=== PATIENT | female | born 1955 | race Caucasian/White ===

== ENCOUNTER 2016-10-24 15:55 | Observation (INO) | payer BC ==
[2016-10-24] MEDS ORDERED: Zofran 4 MG/2 ML VIAL IV PRN (16:24)
[2016-10-24] MEDS ORDERED: TORAdol 30 mg Injection IV PRN (16:24)
[2016-10-24] MEDS ORDERED: Sodium Chloride 0.9% 1000 ML 1,000 ML IV SCH (16:30)
[2016-10-24] MEDS: Sodium Chloride 0.9% 1000 ML 1,000 ML IV SCH (17:19)
[2016-10-24 17:25] LABS: BASOPHIL % 0.1 % (0.0-0.4); Eosinophil % 0.7 % (0.00-5.0); Granulocytes % 66.7 % (36.0-66.0); Lymphocytes % 25.3 % (24.0-44.0); Mean Cell Volume 91.7 fl (78-100); Mean Platelet Volume 9.1 fl (6-9.5); Monocytes % 7.2 % (0.0-12.0); Platelet Count 153 K/mm3 (150-450); Red Blood Count 4.09 M/mm3 (4.1-5.4); Red Cell Distribution Width 13.2 % (11.5-14.0); White Blood Count 7.6 K/mm3 (4.0-10.5)
[2016-10-24 18:03] LABS: ALBUMIN 3.8 g/dL (3.4-5.0); ALKALINE PHOSPHATASE 92 U/L (46-116); ANION GAP 14.9 MEQ/L (5-15); BILIRUBIN,TOTAL 0.5 mg/dL (0.2-1.0); BLOOD UREA NITROGEN 11 mg/dL (9-20); CHLORIDE 103 mEq/L (98-107); Carbon Dioxide 25.9 mEq/L (21-32); Glucose 167 MG/DL (70-110); Potassium 4.3 mEq/L (3.5-5.1); SGOT/AST 57 U/L (15-37); SGPT/ALT 62 U/L (12-78); SODIUM 140 mEq/L (136-145); Total Protein 7.5 gm/dL (6.4-8.2)
[2016-10-24 19:11] LABS: COMPLETE URINE MICROSCOPIC? NO; Collection Type CCMS
[2016-10-24] MEDS ORDERED: ZOCOR 20MG PO SCH (22:00)
[2016-10-25] MEDS: Sodium Chloride 0.9% 1000 ML 1,000 ML IV SCH ×2 (02:48→10:28)
[2016-10-25] MEDS ORDERED: PROVENTIL 2.5 MG/3 ML NEB IH PRN (07:11)
--- NOTE | 2016-10-25 08:51 | PCM.NOTE ---
Date and Time: 10/25/16 0850 Subjective Assessment: She tolerated jello this morning. Still not feeling great. Objective Exam General Appearance: no apparent distress Neurologic Exam: alert, 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, cooperative Skin Exam: normal color, warm Respiratory Exam: normal breath sounds, lungs clear, No crackles/rales, No rhonchi, No wheezing Cardiovascular Exam: regular rate/rhythm, normal heart sounds Gastrointestinal/Abdomen Exam: soft, normal bowel sounds, No tenderness, No distention Extremity Exam: No pedal edema, No swelling OBJECTIVE DATA Vital Signs: Vital Signs - 24 hr Temp Pulse Resp BP Pulse Ox 10/25/16 07:58 97.8 F 84 20 131/60 95 10/25/16 04:00 97.6 F 78 17 126/54 97 10/25/16 00:00 98.0 F 87 18 118/48 97 10/24/16 20:00 97.6 F 99 H 19 134/58 95 10/24/16 16:23 97.9 F 99 H 18 142/75 96 Pain Assessment - Last Documented Pain Intensity 5 Pain Scale Used [facility] Intake and Output: Intake & Output 10/22/16 10/23/16 10/24/16 10/25/16 11:59 11:59 11:59 11:59 Intake Total 3260 Output Total 800 Balance 2460 Weight 83.915 kg Lab Results: Accuchecks Date 10/24/16 Time 22:00 Accucheck Value: 116 Lab Results-Last 24 Hours 10/24/16 10/24/16 10/24/16 Range/Units 17:15 17:15 18:51 WBC 7.6 (4.0-10.5) K/mm3 RBC 4.09 L (4.1-5.4) M/mm3 Hgb 12.7 (12.0-16.0) gm/dl Hct 37.5 (35-47) % MCV 91.7 (78-100) fl MCH 31.0 (26-32) pg MCHC 33.9 (32-36) g/dl RDW 13.2 (11.5-14.0) % Plt Count 153 (150-450) K/mm3 MPV 9.1 (6-9.5) fl Gran % 66.7 H (36.0-66.0) % Lymphocytes % 25.3 (24.0-44.0) % Monocytes % 7.2 (0.0-12.0) % Eosinophils % 0.7 (0.00-5.0) % Basophils % 0.1 (0.0-0.4) % Basophils # 0.01 (0-0.4) Sodium 140 (136-145) mEq/L Potassium 4.3 (3.5-5.1) mEq/L Chloride 103 (98-107) mEq/L Carbon Dioxide 25.9 (21-32) mEq/L Anion Gap 14.9 (5-15) MEQ/L BUN 11 (9-20) mg/dL Creatinine 0.77 (0.55-1.30) mg/dl Estimated GFR > 60 ML/MIN Glucose 167 H (70-110) MG/DL Calcium 10.1 (8.5-10.1) mg/dL Total Bilirubin 0.5 (0.2-1.0) mg/dL AST 57 H (15-37) U/L ALT 62 (12-78) U/L Alkaline Phosphatase 92 (46-116) U/L Serum Total Protein 7.5 (6.4-8.2) gm/dL Albumin 3.8 (3.4-5.0) g/dL Ur Collection Type CCMS Urine Color YELLOW (YELLOW) Urine Appearance CLEAR (CLEAR) Urine pH 7.0 (5-6) Ur Specific [place] 1.015 (1.005-1.025) Urine Protein NEGATIVE (Negative) Urine Glucose (UA) NEGATIVE (NEGATIVE) mg/dL Urine Ketones TRACE (NEGATIVE) Urine Nitrite NEGATIVE (NEGATIVE) Urine Bilirubin NEGATIVE (NEGATIVE) Urine Urobilinogen 0.2 (0-1) mg/dL Urine WBC (Auto) NEGATIVE (NEGATIVE) Urine RBC (Auto) NEGATIVE (0-5) Rao/ul Specimen Received 10-24-16 1900 Radiology Exams: Radiology Procedures Category Date Time Status CHEST 2 VIEWS (PA AND LAT) Routine Exams 10/24/16 17:00 Taken Assessment/Plan (1) Dehydration Current Visit: Yes Status: Acute Assessment & Plan: improved. Continue IV fluids while she increases po intake. If tolerating po this afternoon can d/c home. Code(s): E86.0 - DEHYDRATION (2) Vomiting Current Visit: Yes Status: Acute Assessment & Plan: improved. Code(s): R11.10 - VOMITING, UNSPECIFIED (3) Diarrhea Current Visit: Yes Status: Acute Assessment & Plan: None here. Code(s): R19.7 - DIARRHEA, UNSPECIFIED
--- NOTE | 2016-10-25 08:51 | XRAY ---
Indication: Nausea, vomiting, diarrhea, pain, and dehydration. Comparison: December 11, 2015 PA/lateral chest today demonstrates normal heart and lungs. Bony thorax intact again with spinal degenerative changes.
[2016-10-25] MEDS ORDERED: Benicar 20 MG PO SCH (10:00)
[2016-10-25] MEDS ORDERED: SYNTHROID 75 MCG PO SCH (10:00)
[2016-10-25] MEDS ORDERED: Klor Con 10 MEQ PO SCH (10:00)
[2016-10-25] MEDS ORDERED: NON-FORMULARY ITEM (Venlafaxine Hcl [Effexor] 150 MG) PO SCH (10:00)
[2016-10-25] MEDS ORDERED: NORVASC 5 MG PO SCH (10:00)
[2016-10-25] MEDS ORDERED: POTASSIUM GLUCONATE 595 MG PO SCH (10:00)
[2016-10-25] MEDS ORDERED: OLMESARTAN MED PO SCH (10:00)
[2016-10-25] MEDS ORDERED: AMLODIPINE BES PO SCH (10:00)
[2016-10-25] MEDS ORDERED: Effexor XR 75 MG PO SCH (10:00)
[2016-10-25 17:09] VITALS: BP 118/59; PULSE 91; O2SAT 96
--- NOTE | 2016-10-25 17:43 | PCM.DS ---
Discharge Summary Date of Admission: 10/24/16 15:55 Admitting Physician: ANGELA LEE Primary Care Provider: ANGELA LEE Allergies Allergies No Known Drug Allergies Allergy (Verified 12/04/15 15:04) Hospital Summary - Hospital Course Hospital Course: Pt was admitted through the office for dehydration - not tolerating po. Vomiting and Diarrhea. Today no diarrhea, she tolerated lunch well and is feeling better, ready to go home. - Vitals & Intake/Output Vital Signs: Vital Signs Temperature 98.6 F 10/25/16 16:00 Pulse Rate 91 H 10/25/16 16:00 Respiratory Rate 20 10/25/16 16:00 Blood Pressure 118/59 10/25/16 16:00 O2 Sat by Pulse Oximetry 96 10/25/16 16:00 Intake & Output: Intake & Output 10/23/16 10/24/16 10/25/16 10/26/16 11:59 11:59 11:59 11:59 Intake Total 3260 1440 Output Total 800 2000 Balance 2460 -560 Weight 83.915 kg - Lab Result Diagrams: 10/24/16 17:15 10/24/16 17:15 Lab Results-Last 24 Hrs: Accuchecks Date 10/24/16 Time 22:00 Accucheck Value: 198 Accucheck Value: 150 Accucheck Value: 131 Accucheck Value: 116 Lab Results-Last 24 Hours 10/24/16 10/24/16 10/24/16 Range/Units 17:15 17:15 18:51 WBC 7.6 (4.0-10.5) K/mm3 RBC 4.09 L (4.1-5.4) M/mm3 Hgb 12.7 (12.0-16.0) gm/dl Hct 37.5 (35-47) % MCV 91.7 (78-100) fl MCH 31.0 (26-32) pg MCHC 33.9 (32-36) g/dl RDW 13.2 (11.5-14.0) % Plt Count 153 (150-450) K/mm3 MPV 9.1 (6-9.5) fl Gran % 66.7 H (36.0-66.0) % Lymphocytes % 25.3 (24.0-44.0) % Monocytes % 7.2 (0.0-12.0) % Eosinophils % 0.7 (0.00-5.0) % Basophils % 0.1 (0.0-0.4) % Basophils # 0.01 (0-0.4) Sodium 140 (136-145) mEq/L Potassium 4.3 (3.5-5.1) mEq/L Chloride 103 (98-107) mEq/L Carbon Dioxide 25.9 (21-32) mEq/L Anion Gap 14.9 (5-15) MEQ/L BUN 11 (9-20) mg/dL Creatinine 0.77 (0.55-1.30) mg/dl Estimated GFR > 60 ML/MIN Glucose 167 H (70-110) MG/DL Calcium 10.1 (8.5-10.1) mg/dL Total Bilirubin 0.5 (0.2-1.0) mg/dL AST 57 H (15-37) U/L ALT 62 (12-78) U/L Alkaline Phosphatase 92 (46-116) U/L Serum Total Protein 7.5 (6.4-8.2) gm/dL Albumin 3.8 (3.4-5.0) g/dL Ur Collection Type CCMS Urine Color YELLOW (YELLOW) Urine Appearance CLEAR (CLEAR) Urine pH 7.0 (5-6) Ur Specific [place] 1.015 (1.005-1.025) Urine Protein NEGATIVE (Negative) Urine Glucose (UA) NEGATIVE (NEGATIVE) mg/dL Urine Ketones TRACE (NEGATIVE) Urine Nitrite NEGATIVE (NEGATIVE) Urine Bilirubin NEGATIVE (NEGATIVE) Urine Urobilinogen 0.2 (0-1) mg/dL Urine WBC (Auto) NEGATIVE (NEGATIVE) Urine RBC (Auto) NEGATIVE (0-5) Rao/ul Specimen Received 10-24-16 1900 Micro Results-Entire Visit: Accuchecks Date 10/24/16 Time 22:00 Accucheck Value: 198 Accucheck Value: 150 Accucheck Value: 131 Accucheck Value: 116 - Radiology Exams Ordered Rad Exams-Entire Visit: Radiology Procedures Category Date Time Status CHEST 2 VIEWS (PA AND LAT) Routine Exams 10/24/16 17:00 Completed - Procedures and Test Procedures and Tests throughout Hospitalization: Therapy Orders & Screens 10/25/16 09:57 Respiratory Nebulizer Comment: Q4PRN SOB WHEEZING Diagnosis: Dehydration,Nausea,Vomiting,Diarrhea,Neck Pain Discharge Exam General Appearance: no apparent distress, other (see this morning's exam) Neurologic Exam: alert, 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, cooperative Skin Exam: normal color, warm, dry Respiratory Exam: normal breath sounds, lungs clear Cardiovascular Exam: regular rate/rhythm, normal heart sounds Gastrointestinal/Abdomen Exam: soft, normal bowel sounds, No tenderness Final Diagnosis/Problem List - Final Discharge Diagnosis/Problem (1) Dehydration Current Visit: Yes Status: Resolved (2) Vomiting Current Visit: Yes Status: Resolved (3) Diarrhea Current Visit: Yes Status: Resolved - Discharge Disposition: Home, Self-Care Condition: Stable Medications: Home Medications Levothyroxine Sodium 75 Mcg [Synthroid 75 Mcg] 75 mcg PO DAILY 11/07/13 [ Confirmed 10/24/16] Venlafaxine HCl [Effexor] 150 mg PO DAILY 11/07/13 [Confirmed 10/24/16] Cinnamon Bark [Cinnamon] 1,000 mg PO DAILY 11/08/13 [Confirmed 10/24/16] Multivitamin [Multi-Vitamin Daily] 1 each PO DAILY 11/08/13 [Confirmed 10/24/16] Pravastatin Sodium 20 mg PO HS 11/08/13 [Confirmed 10/24/16] Calcium Citrate/Vitamin D3 [Calcium Citrate - Vit D Caplet] 1 each PO DAILY [Confirmed 10/24/16] Cyanocobalamin (Vitamin B-12) [Vitamin B12] 500 mcg PO DAILY 10/01/15 [ Confirmed 10/24/16] Potassium Gluconate 595 mg PO DAILY 10/01/15 [Confirmed 10/24/16] Raloxifene HCl 60 mg [Evista 60 MG] 60 mg PO DAILY 10/01/15 [Confirmed 07/02] Metformin HCl 500 mg [Glucophage 500 MG] 500 tablet PO DAILY 12/04/15 [ Confirmed 10/24/16] Albuterol 2.5 mg/3 ml Neb [Proventil 2.5 mg/3 ml Neb] 2.5 mg IH Q4HPRN PRN #0 neb 12/05/15 [Confirmed 10/24/16] Amlodipine Bes/Olmesartan Med [Artemio 5-40 mg Tablet] 1 each PO DAILY 10/24/16 [ Confirmed 10/24/16] Active Inpatient Medications Albuterol Sulfate (Proventil 2.5 Mg/3 Ml Neb) 2.5 mg IH Q4HPRN PRN PRN Reason: SHORTNESS OF BREATH Stop: 11/24/16 07:10 Amlodipine Besylate (Norvasc 5 Mg) 5 mg PO DAILY JAYDA Stop: 11/24/16 09:59 Last Admin: 10/25/16 10:21 Dose: 5 mg Sodium Chloride (Sodium Chloride 0.9% 1000 Ml) 1,000 mls @ 125 mls/hr IV .Q8H JAYDA Stop: 11/23/16 16:59 Last Admin: 10/25/16 10:28 Dose: 125 mls/hr Ketorolac Tromethamine (Toradol 30 Mg Injection) 30 mg IV Q6H PRN PRN Stop: 10/29/16 16:23 Last Admin: 10/24/16 20:32 Dose: 30 mg Levothyroxine Sodium (Synthroid 75 Mcg) 75 mcg PO DAILY JAYDA Stop: 11/24/16 09:59 Last Admin: 10/25/16 10:20 Dose: 75 mcg Olmesartan (Benicar 20 Mg) 40 mg PO DAILY JAYDA Stop: 11/24/16 09:59 Last Admin: 10/25/16 10:20 Dose: 40 mg Ondansetron HCl (Zofran 4 Mg/2 Ml Vial) 4 mg IV Q4H PRN PRN Stop: 11/23/16 16:23 Potassium Chloride (Klor Con 10 Meq) 10 meq PO DAILY JAYDA Stop: 11/24/16 09:59 Last Admin: 10/25/16 10:21 Dose: 10 meq Simvastatin (Zocor 20mg) 20 mg PO HS JAYDA Stop: 11/23/16 21:59 Last Admin: 10/24/16 22:52 Dose: 20 mg Venlafaxine HCl (Effexor Xr 75 Mg) 150 mg PO DAILY JAYDA Stop: 11/24/16 09:59 Last Admin: 10/25/16 10:20 Dose: 150 mg Follow up with: ANGELA LEE [Primary Care Provider] - Call for Appointment
== END 2016-10-25 18:40 | disposition home or self-care (01) ==
LOC: MED SURG 15:55
PROVIDERS: ADMIT Family Medicine; ATTEND Family Medicine
DX: E86.0 Dehydration (principal); M54.2 Cervicalgia; E03.9 Hypothyroidism, unspecified; I10 Essential (primary) hypertension
CPT/HCPCS: 36415; 71020; 80053; 81002; 82962; 85025; 94760; G0378; J1885

== ENCOUNTER 2016-12-14 12:13 | Observation (INO) | payer BC ==
[2016-12-14] MEDS ORDERED: NovoLIN R SQ PRN (12:20)
[2016-12-14] MEDS ORDERED: TYLENOL 325 MG PO PRN (12:20)
[2016-12-14] MEDS ORDERED: Sodium Chloride 0.9% 1000 ML 1,000 ML IV STA (12:20)
[2016-12-14] MEDS ORDERED: Zofran 4 MG/2 ML VIAL IV PRN (12:20)
[2016-12-14 12:42] LABS: BASOPHIL % 0.1 % (0.0-0.4); Eosinophil % 0.7 % (0.00-5.0); Granulocytes % 75.5 % (36.0-66.0); Lymphocytes % 13.9 % (24.0-44.0); Mean Cell Volume 89.4 fl (78-100); Mean Corpuscular Hemoglobin 31.2 pg (26-32); Mean Platelet Volume 9.1 fl (6-9.5); Monocytes % 9.8 % (0.0-12.0); Platelet Count 126 K/mm3 (150-450); Red Blood Count 4.61 M/mm3 (4.1-5.4); Red Cell Distribution Width 13.8 % (11.5-14.0); White Blood Count 6.9 K/mm3 (4.0-10.5)
[2016-12-14 13:09] LABS: ALBUMIN 3.9 g/dL (3.4-5.0); BILIRUBIN,TOTAL 0.6 mg/dL (0.2-1.0); Carbon Dioxide 22.5 mEq/L (21-32); Potassium 4.5 mEq/L (3.5-5.1); Total Protein 7.8 gm/dL (6.4-8.2)
[2016-12-14] MEDS: Sodium Chloride 0.9% 1000 ML 1,000 ML IV SCH (13:30)
[2016-12-14] MEDS ORDERED: PROVENTIL 2.5 MG/3 ML NEB IH PRN (14:56)
[2016-12-14 16:59] LABS: Bacteria FEW /HPF (NEGATIVE); COMPLETE URINE MICROSCOPIC? YES; Collection Type VOID; Epithelial Cells FEW /HPF (FEW)
[2016-12-14 17:00] LABS: Hyaline Casts >50 /LPF (0-2)
--- NOTE | 2016-12-14 17:52 | PCM.HP ---
History of Present Illness - Chief Complaint Chief Complaint: n/v diarrhea Date: 12/14/16 History of Present Illness: is a 61 year old female. developed nausea vomiting and diarrhea as well as chills 4 days ago. Was trying to work today but was sweating and very light headed with dry heaves> She went to [facility] and was found to have orthostatic hypotension and was sent for direct admission and hydration. The nausea and diarrhea are improving now and she is still weak no abdominal pain, chest pain, shortness of breath, or focal weakness. - Review of Systems Constitutional: Chills, Fatigue, Lethargy, No Fever Eyes: No Discharge, No Double Vision Ears, Nose, & Throat: No Ear Pain, No Ear Discharge, No Hearing Changes, No Mouth Swelling, No Painful Swallowing Respiratory: No Cough, No Short Of Breath, No Wheezing Cardiac: No Chest Pain, No Edema, No Palpitations, No Syncope Abdominal/Gastrointestinal: Nausea, Vomiting, Diarrhea, No Abdominal Pain, No Hematochezia, No Melena Genitourinary Symptoms: No Dysuria, No Frequency, No Hematuria Musculoskeletal: No Arthralgias, No Back Pain, No Neck Pain Skin: No Cellulitis, No Decubiti, No Induration, No Pruritis Neurological: No Dizziness, No Focal Weakness Psychological: No Alcohol Abuse, No Drug Abuse Medications & Allergies Home Medications: Home Medication List Levothyroxine Sodium 75 Mcg [Synthroid 75 Mcg] 75 mcg PO DAILY 11/07/13 [ History Confirmed 12/14/16] Venlafaxine HCl [Effexor] 150 mg PO DAILY 11/07/13 [History Confirmed 12/14/16] Cinnamon Bark [Cinnamon] 1,000 mg PO DAILY 11/08/13 [History Confirmed 12/14/16] Multivitamin [Multi-Vitamin Daily] 1 each PO DAILY 11/08/13 [History Confirmed 12/14/16] Pravastatin Sodium 20 mg PO HS 11/08/13 [History Confirmed 12/14/16] Calcium Citrate/Vitamin D3 [Calcium Citrate - Vit D Caplet] 1 each PO DAILY [History Confirmed 12/14/16] Cyanocobalamin (Vitamin B-12) [Vitamin B12] 500 mcg PO DAILY 10/01/15 [History Confirmed 12/14/16] Potassium Gluconate 595 mg PO DAILY 10/01/15 [History Confirmed 12/14/16] Raloxifene HCl 60 mg [Evista 60 MG] 60 mg PO DAILY 10/01/15 [History Confirmed 12/14/16] Metformin HCl 500 mg [Glucophage 500 MG] 500 tablet PO DAILY 12/04/15 [ History Confirmed 12/14/16] Albuterol 2.5 mg/3 ml Neb [Proventil 2.5 mg/3 ml Neb] 2.5 mg IH Q4HPRN PRN #0 neb 12/05/15 [Rx Confirmed 12/14/16] Amlodipine Bes/Olmesartan Med [Artemio 5-40 mg Tablet] 1 each PO DAILY 10/24/16 [ History Confirmed 12/14/16] Allergies/Adverse Reactions: Allergies Allergy/AdvReac Type Severity Reaction Status Date / Time No Known Drug Allergies Allergy Verified 12/04/15 15:04 - Past Medical History Past Medical History: Yes Neurological History: No Pertinent History ENT History: No Pertinent History Cardiac History: High Cholesterol, Hypertension Respiratory History: Bronchitis Endocrine Medical History: Diabetes Type II, Hypothyroidism Musculoskelatal History: Arthritis GI Medical History: No Pertinent History History: No Pertinent History Pyscho-Social History: Anxiety Reproductive Disorders: No Pertinent History Comment: borderline DM - Female History Are you now?: No - Past Surgical History Past Surgical History: No Neuro Surgical History: No Pertinent History Cardiac History: No Pertinent History Respiratory Surgery: No Pertinent History GI Surgical History: No Pertinent History Genitourinary Surgical Hx: No Pertinent History Musculskeletal Surgical Hx: No Pertinent History Female Surgical History: No Pertinent History Other Surgical History: NO SURGERYS - Social History Smoking Status: Never smoker Exposure to second hand smoke: No Alcohol: None Drug Use: none Significant Family History: no pertinent family hx - Physical Exam Vital Signs: Vital Signs - 24 hr Temp Pulse Resp BP Pulse Ox 12/14/16 16:03 96 12/14/16 16:00 98.6 F 88 18 117/57 12/14/16 13:03 98.4 F 92 H 18 111/60 97 General Appearance: no apparent distress, obese Neurologic Exam: alert, 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, cooperative Eye Exam: No scleral icterus, No pale conjunctivae Ears, Nose, Throat Exam: moist mucous membranes Neck Exam: non-tender, supple Respiratory Exam: normal breath sounds, lungs clear Cardiovascular Exam: regular rate/rhythm, normal heart sounds, normal peripheral pulses, No murmur Gastrointestinal/Abdomen Exam: soft, normal bowel sounds, No tenderness, No distention, No mass, No guarding, No ecchymosis Extremity Exam: normal inspection, No calf tenderness, No pedal edema Skin Exam: warm, dry, No rash Results - Labs Lab/Micro Results: Accuchecks Date 12/14/16 Accucheck Value: 114 Lab Results-Last 24 Hours 12/14/16 12/14/16 12/14/16 Range/Units 12:35 12:35 12:35 WBC 6.9 (4.0-10.5) K/mm3 RBC 4.61 (4.1-5.4) M/mm3 Hgb 14.4 (12.0-16.0) gm/dl Hct 41.2 (35-47) % MCV 89.4 (78-100) fl MCH 31.2 (26-32) pg MCHC 35.0 (32-36) g/dl RDW 13.8 (11.5-14.0) % Plt Count 126 L (150-450) K/mm3 MPV 9.1 (6-9.5) fl Gran % 75.5 H (36.0-66.0) % Lymphocytes % 13.9 L (24.0-44.0) % Monocytes % 9.8 (0.0-12.0) % Eosinophils % 0.7 (0.00-5.0) % Basophils % 0.1 (0.0-0.4) % Basophils # 0.01 (0-0.4) Sodium 136 (136-145) mEq/L Potassium 4.5 (3.5-5.1) mEq/L Chloride 100 (98-107) mEq/L Carbon Dioxide 22.5 (21-32) mEq/L Anion Gap 18.0 H (5-15) MEQ/L BUN 28 H (9-20) mg/dL Creatinine 1.38 H (0.55-1.30) mg/dl Estimated GFR 41 ML/MIN Glucose 197 H (70-110) MG/DL Calcium 10.3 H (8.5-10.1) mg/dL Total Bilirubin 0.6 (0.2-1.0) mg/dL AST 99 H (15-37) U/L ALT 65 (12-78) U/L Alkaline Phosphatase 86 (46-116) U/L Serum Total Protein 7.8 (6.4-8.2) gm/dL Albumin 3.9 (3.4-5.0) g/dL Lipase 229 (73-393) U/L Ur Collection Type Urine Color (YELLOW) Urine Appearance (CLEAR) Urine pH (5-6) Ur Specific [place] (1.005-1.025) Urine Protein (Negative) Urine Glucose (UA) (NEGATIVE) mg/dL Urine Ketones (NEGATIVE) Urine Nitrite (NEGATIVE) Urine Bilirubin (NEGATIVE) Urine Urobilinogen (0-1) mg/dL Urine WBC (Auto) (NEGATIVE) Urine RBC (Auto) (0-5) Rao/ul Urine Microscopic WBC (0-5) /HPF Ur Epithelial Cells (FEW) /HPF Urine Bacteria (NEGATIVE) /HPF Hyaline Casts (0-2) /LPF Influenza Type A Ag (NEGATIVE) Influenza Type B Ag (NEGATIVE) RSV (PCR) (Negative) Specimen Received 12/14/16 12/14/16 Range/Units 12:35 16:40 WBC (4.0-10.5) K/mm3 RBC (4.1-5.4) M/mm3 Hgb (12.0-16.0) gm/dl Hct (35-47) % MCV (78-100) fl MCH (26-32) pg MCHC (32-36) g/dl RDW (11.5-14.0) % Plt Count (150-450) K/mm3 MPV (6-9.5) fl Gran % (36.0-66.0) % Lymphocytes % (24.0-44.0) % Monocytes % (0.0-12.0) % Eosinophils % (0.00-5.0) % Basophils % (0.0-0.4) % Basophils # (0-0.4) Sodium (136-145) mEq/L Potassium (3.5-5.1) mEq/L Chloride (98-107) mEq/L Carbon Dioxide (21-32) mEq/L Anion Gap (5-15) MEQ/L BUN (9-20) mg/dL Creatinine (0.55-1.30) mg/dl Estimated GFR ML/MIN Glucose (70-110) MG/DL Calcium (8.5-10.1) mg/dL Total Bilirubin (0.2-1.0) mg/dL AST (15-37) U/L ALT (12-78) U/L Alkaline Phosphatase (46-116) U/L Serum Total Protein (6.4-8.2) gm/dL Albumin (3.4-5.0) g/dL Lipase (73-393) U/L Ur Collection Type VOID Urine Color YELLOW (YELLOW) Urine Appearance SLIGHTLY CLOUDY (CLEAR) Urine pH 5.0 (5-6) Ur Specific [place] 1.020 (1.005-1.025) Urine Protein 30 (Negative) Urine Glucose (UA) NEGATIVE (NEGATIVE) mg/dL Urine Ketones SMALL-15 (NEGATIVE) Urine Nitrite NEGATIVE (NEGATIVE) Urine Bilirubin NEGATIVE (NEGATIVE) Urine Urobilinogen 0.2 (0-1) mg/dL Urine WBC (Auto) SMALL (NEGATIVE) Urine RBC (Auto) NEGATIVE (0-5) Rao/ul Urine Microscopic WBC 5-10 (0-5) /HPF Ur Epithelial Cells FEW (FEW) /HPF Urine Bacteria FEW (NEGATIVE) /HPF Hyaline Casts >50 (0-2) /LPF Influenza Type A Ag NEGATIVE (NEGATIVE) Influenza Type B Ag NEGATIVE (NEGATIVE) RSV (PCR) NEGATIVE (Negative) Specimen Received 12/14/16 1640 Accuchecks Date 12/14/16 Accucheck Value: 114 - Other Procedures and Tests Respiratory Therapy 12/14/16 16:03 Respiratory Nebulizer UD Assessment/Plan (1) Gastroenteritis Current Visit: Yes Status: Acute Assessment & Plan: 1 L NS given and running at 100 mL/h nausea controlled now with zofran continue hydration advance diet as tolerated continue observation ambulate up with assistance as tolerated hold the antihypertensives sliding scale for the sugar control Code(s): K52.9 - NONINFECTIVE GASTROENTERITIS AND COLITIS, UNSPECIFIED (2) Acute kidney injury Current Visit: Yes Status: Acute Assessment & Plan: baseline creat 0.7 Code(s): N17.9 - ACUTE KIDNEY FAILURE, UNSPECIFIED (3) Dehydration Current Visit: Yes Status: Resolved Code(s): E86.0 - DEHYDRATION (4) Orthostatic hypotension Current Visit: Yes Status: Acute Code(s): I95.1 - ORTHOSTATIC HYPOTENSION (5) Type 2 diabetes mellitus Current Visit: Yes Status: Chronic
[2016-12-14] MEDS ORDERED: ZOCOR 20MG PO SCH (22:00)
[2016-12-14] MEDS ORDERED: NON-FORMULARY ITEM (Pravastatin Sodium [Pravastatin Sodium] 20 MG) PO SCH (22:00)
[2016-12-15] MEDS: Sodium Chloride 0.9% 1000 ML 1,000 ML IV SCH (00:42)
[2016-12-15 05:49] LABS: ANION GAP 14.9 MEQ/L (5-15); BLOOD UREA NITROGEN 15 mg/dL (9-20); CHLORIDE 106 mEq/L (98-107); Carbon Dioxide 22.2 mEq/L (21-32); Glucose 133 MG/DL (70-110); Potassium 4.2 mEq/L (3.5-5.1); SODIUM 139 mEq/L (136-145)
[2016-12-15 07:26] VITALS: O2SAT 97
--- NOTE | 2016-12-15 08:33 | PCM.DS ---
Discharge Summary Date of Admission: 12/14/16 12:13 Admitting Physician: ANGELA LEE Primary Care Provider: ANGELA LEE Allergies Allergies No Known Drug Allergies Allergy (Verified 12/04/15 15:04) Hospital Summary - Hospital Course Hospital Course: Pt admitted through [facility] care directly with hypotension and gastroenteritis. IV fluids and anti emetics. She is feeling better, no nausea currently and no diarrhea since admission. She tolerated CLD and ready to eat some more. - Vitals & Intake/Output Vital Signs: Vital Signs Temperature 98.0 F 12/15/16 07:25 Pulse Rate 84 12/15/16 07:25 Respiratory Rate 16 12/15/16 07:25 Blood Pressure 108/57 12/15/16 07:25 O2 Sat by Pulse Oximetry 97 12/15/16 07:25 Intake & Output: Intake & Output 12/12/16 12/13/16 12/14/16 12/15/16 11:59 11:59 11:59 11:59 Intake Total 3230 Output Total 200 Balance 3030 Weight 80.456 kg - Lab Result Diagrams: 12/14/16 12:35 12/15/16 05:24 Lab Results-Last 24 Hrs: Accuchecks Date 12/14/16 Accucheck Value: 131 Accucheck Value: 114 Lab Results-Last 24 Hours 12/14/16 12/14/16 12/14/16 Range/Units 12:35 12:35 12:35 WBC 6.9 (4.0-10.5) K/mm3 RBC 4.61 (4.1-5.4) M/mm3 Hgb 14.4 (12.0-16.0) gm/dl Hct 41.2 (35-47) % MCV 89.4 (78-100) fl MCH 31.2 (26-32) pg MCHC 35.0 (32-36) g/dl RDW 13.8 (11.5-14.0) % Plt Count 126 L (150-450) K/mm3 MPV 9.1 (6-9.5) fl Gran % 75.5 H (36.0-66.0) % Lymphocytes % 13.9 L (24.0-44.0) % Monocytes % 9.8 (0.0-12.0) % Eosinophils % 0.7 (0.00-5.0) % Basophils % 0.1 (0.0-0.4) % Basophils # 0.01 (0-0.4) Sodium 136 (136-145) mEq/L Potassium 4.5 (3.5-5.1) mEq/L Chloride 100 (98-107) mEq/L Carbon Dioxide 22.5 (21-32) mEq/L Anion Gap 18.0 H (5-15) MEQ/L BUN 28 H (9-20) mg/dL Creatinine 1.38 H (0.55-1.30) mg/dl Estimated GFR 41 ML/MIN Glucose 197 H (70-110) MG/DL Calcium 10.3 H (8.5-10.1) mg/dL Total Bilirubin 0.6 (0.2-1.0) mg/dL AST 99 H (15-37) U/L ALT 65 (12-78) U/L Alkaline Phosphatase 86 (46-116) U/L Serum Total Protein 7.8 (6.4-8.2) gm/dL Albumin 3.9 (3.4-5.0) g/dL Lipase 229 (73-393) U/L Ur Collection Type Urine Color (YELLOW) Urine Appearance (CLEAR) Urine pH (5-6) Ur Specific [place] (1.005-1.025) Urine Protein (Negative) Urine Glucose (UA) (NEGATIVE) mg/dL Urine Ketones (NEGATIVE) Urine Nitrite (NEGATIVE) Urine Bilirubin (NEGATIVE) Urine Urobilinogen (0-1) mg/dL Urine WBC (Auto) (NEGATIVE) Urine RBC (Auto) (0-5) Rao/ul Urine Microscopic WBC (0-5) /HPF Ur Epithelial Cells (FEW) /HPF Urine Bacteria (NEGATIVE) /HPF Hyaline Casts (0-2) /LPF Influenza Type A Ag (NEGATIVE) Influenza Type B Ag (NEGATIVE) RSV (PCR) (Negative) Specimen Received 12/14/16 12/14/16 12/15/16 Range/Units 12:35 16:40 05:24 WBC (4.0-10.5) K/mm3 RBC (4.1-5.4) M/mm3 Hgb (12.0-16.0) gm/dl Hct (35-47) % MCV (78-100) fl MCH (26-32) pg MCHC (32-36) g/dl RDW (11.5-14.0) % Plt Count (150-450) K/mm3 MPV (6-9.5) fl Gran % (36.0-66.0) % Lymphocytes % (24.0-44.0) % Monocytes % (0.0-12.0) % Eosinophils % (0.00-5.0) % Basophils % (0.0-0.4) % Basophils # (0-0.4) Sodium 139 (136-145) mEq/L Potassium 4.2 (3.5-5.1) mEq/L Chloride 106 (98-107) mEq/L Carbon Dioxide 22.2 (21-32) mEq/L Anion Gap 14.9 (5-15) MEQ/L BUN 15 (9-20) mg/dL Creatinine 0.74 (0.55-1.30) mg/dl Estimated GFR > 60 ML/MIN Glucose 133 H (70-110) MG/DL Calcium 8.4 L (8.5-10.1) mg/dL Total Bilirubin (0.2-1.0) mg/dL AST (15-37) U/L ALT (12-78) U/L Alkaline Phosphatase (46-116) U/L Serum Total Protein (6.4-8.2) gm/dL Albumin (3.4-5.0) g/dL Lipase (73-393) U/L Ur Collection Type VOID Urine Color YELLOW (YELLOW) Urine Appearance SLIGHTLY CLOUDY (CLEAR) Urine pH 5.0 (5-6) Ur Specific [place] 1.020 (1.005-1.025) Urine Protein 30 (Negative) Urine Glucose (UA) NEGATIVE (NEGATIVE) mg/dL Urine Ketones SMALL-15 (NEGATIVE) Urine Nitrite NEGATIVE (NEGATIVE) Urine Bilirubin NEGATIVE (NEGATIVE) Urine Urobilinogen 0.2 (0-1) mg/dL Urine WBC (Auto) SMALL (NEGATIVE) Urine RBC (Auto) NEGATIVE (0-5) Rao/ul Urine Microscopic WBC 5-10 (0-5) /HPF Ur Epithelial Cells FEW (FEW) /HPF Urine Bacteria FEW (NEGATIVE) /HPF Hyaline Casts >50 (0-2) /LPF Influenza Type A Ag NEGATIVE (NEGATIVE) Influenza Type B Ag NEGATIVE (NEGATIVE) RSV (PCR) NEGATIVE (Negative) Specimen Received 12/14/16 1640 Micro Results-Entire Visit: Accuchecks Date 12/14/16 Accucheck Value: 131 Accucheck Value: 114 - Procedures and Test Procedures and Tests throughout Hospitalization: Therapy Orders & Screens 12/14/16 16:03 Respiratory Nebulizer UD Comment: albuterol q4prn Diagnosis: n/v diarrhea Discharge Exam General Appearance: no apparent distress Neurologic Exam: alert, 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, cooperative Skin Exam: normal color, warm, dry Respiratory Exam: normal breath sounds, No crackles/rales, No rhonchi, No wheezing Cardiovascular Exam: regular rate/rhythm, normal heart sounds, No murmur Gastrointestinal/Abdomen Exam: soft, normal bowel sounds, No tenderness, No distention, No mass Extremity Exam: No pedal edema, No swelling Final Diagnosis/Problem List - Final Discharge Diagnosis/Problem (1) Gastroenteritis Current Visit: Yes Status: Acute Assessment & Plan: Much improved. If she can tolerate bland diet at lunch may be able to d/c home later today. (2) Orthostatic hypotension Current Visit: Yes Status: Acute Assessment & Plan: due to dehydration. (3) Acute renal failure Current Visit: Yes Status: Acute Assessment & Plan: pre-renal, resolved now with IV fluids. - Discharge Disposition: Home, Self-Care Condition: Stable Prescriptions: No Action Levothyroxine Sodium 75 Mcg [Synthroid 75 Mcg] 75 mcg PO DAILY Venlafaxine HCl [Effexor] 150 mg PO DAILY Pravastatin Sodium 20 mg PO HS Cinnamon Bark [Cinnamon] 1,000 mg PO DAILY Multivitamin [Multi-Vitamin Daily] 1 each PO DAILY Cyanocobalamin (Vitamin B-12) [Vitamin B12] 500 mcg PO DAILY Raloxifene HCl 60 mg [Evista 60 MG] 60 mg PO DAILY Calcium Citrate/Vitamin D3 [Calcium Citrate - Vit D Caplet] 1 each PO DAILY Potassium Gluconate 595 mg PO DAILY Metformin HCl 500 mg [Glucophage 500 MG] 500 tablet PO DAILY Albuterol 2.5 mg/3 ml Neb [Proventil 2.5 mg/3 ml Neb] 2.5 mg IH Q4HPRN PRN #0 neb PRN Reason: Shortness Of Breath Amlodipine Bes/Olmesartan Med [Artemio 5-40 mg Tablet] 1 each PO DAILY Follow up with: ANGELA LEE [Primary Care Provider] - 1 Week Forms: Patient Portal Information
[2016-12-15] MEDS ORDERED: CYANOCOBALAMIN 500 MCG PO SCH (10:00)
[2016-12-15] MEDS ORDERED: NON-FORMULARY ITEM (Venlafaxine Hcl [Effexor] 150 MG) PO SCH (10:00)
[2016-12-15] MEDS ORDERED: SYNTHROID 75 MCG PO SCH (10:00)
[2016-12-15] MEDS ORDERED: Vitamin B-12 500 MCG PO SCH (10:00)
[2016-12-15] MEDS ORDERED: POTASSIUM GLUCONATE 595 MG PO SCH (10:00)
[2016-12-15] MEDS ORDERED: ENOXAPARIN SODIUM SQ SCH (10:00)
[2016-12-15] MEDS ORDERED: EFFEXOR 37.5 MG PO SCH (10:00)
[2016-12-15] MEDS ORDERED: Klor Con 10 MEQ PO SCH ×2 (10:00→22:00)
[2016-12-15 11:16] VITALS: BP 121/68; PULSE 87
== END 2016-12-15 14:00 | disposition home or self-care (01) ==
LOC: MED SURG 12:13
PROVIDERS: ADMIT Family Medicine; ATTEND Family Medicine
DX: K52.9 Noninfective gastroenteritis and colitis, unspecified (principal); I95.1 Orthostatic hypotension; E86.0 Dehydration; N17.9 Acute kidney failure, unspecified; E11.9 Type 2 diabetes mellitus without complications; Z79.4 Long term (current) use of insulin; E03.9 Hypothyroidism, unspecified; M19.90 Unspecified osteoarthritis, unspecified site; F41.9 Anxiety disorder, unspecified; Z79.899 Other long term (current) drug therapy
CPT/HCPCS: 36415; 80048; 80053; 81000; 82962; 83690; 85025; 87631; 94760; G0378; J1650

== ENCOUNTER 2018-07-10 00:53 | Emergency (ER) | payer OTHER, SELFPAY ==
[2018-07-10 01:06] VITALS: BP 146/98; PULSE 100; O2SAT 100
[2018-07-10] MEDS ORDERED: KLONOPIN PO STA (01:42)
[2018-07-10] MEDS ORDERED: NEURONTIN 300 MG ONE (01:47)
[2018-07-10] MEDS ORDERED: Klonopin 0.5 MG ONE (01:48)
--- NOTE | 2018-07-10 01:51 | ERPHSYRPT ---
- History of Present Illness Time Seen by Provider: 07/10/18 01:46 Source: patient, family Exam Limitations: no limitations Patient Subjective Stated Complaint: Pt arrives to ER with c/o bilateral leg pain stating has restless leg syndrome. Pt is on Requip, Pramipexole and Flexeril. Has tried other OTC remedies to no avail. states is unable to sleep d/ t pain. pt also states has not called Dr. Schaffer because it takes 2 weeks to get in and "I don't like quick care". Denies injury or hx of back problems. States pain has been going on for months. pt ambulates with steady gait. Triage Nursing Assessment: see above Physician History: The patient is a 62-year-old female with family member complaining that she said restless legs with pain every night for the past 4 nights. It kept her up. She takes Requip and Mirapex but it has not helped tonight when the past 3 nights. She even went to [facility] and bought a quinine drink that didn't help. She has diabetes and does not know if she has peripheral neuropathy. Her past medical history is significant for restless legs, high cholesterol, diabetes, hypothyroidism, and hypertension. Method of Injury: other (restless legs) Occurred: days ago (4) Quality: intermittent, sharpness Severity of Pain-Max: moderate Severity of Pain-Current: moderate Lower Extremities Pain: leg: bilateral Modifying Factors: Improves With: nothing Associated Symptoms: none Allergies/Adverse Reactions: No Known Drug Allergies Allergy (Verified 07/10/18 01:06) Home Medications: Levothyroxine Sodium 75 Mcg [Synthroid 75 Mcg] 75 mcg PO DAILY 11/07/13 [ History] Venlafaxine HCl [Effexor] 150 mg PO DAILY 11/07/13 [History] Cinnamon Bark [Cinnamon] 1,000 mg PO DAILY 11/08/13 [History] Multivitamin [Multi-Vitamin Daily] 1 each PO DAILY 11/08/13 [History] Pravastatin Sodium 20 mg PO HS 11/08/13 [History] Calcium Citrate/Vitamin D3 [Calcium Citrate - Vit D Caplet] 1 each PO DAILY [History] Cyanocobalamin (Vitamin B-12) [Vitamin B12] 500 mcg PO DAILY 10/01/15 [History] Potassium Gluconate 595 mg PO DAILY 10/01/15 [History] Raloxifene HCl 60 mg [Evista 60 MG] 60 mg PO DAILY 10/01/15 [History] Metformin HCl 500 mg [Glucophage 500 MG] 500 tablet PO DAILY 12/04/15 [ History] Amlodipine Bes/Olmesartan Med [Artemio 5-40 mg Tablet] 1 each PO DAILY 10/24/16 [ History] Ascorbic Acid [Vitamin C] 1,000 mg PO 07/10/18 [History] Pramipexole Di-HCl [Mirapex] 0.125 mg PO 07/10/18 [History] Ropinirole HCl 0.5 mg [Requip 0.5 MG] 0.5 mg PO 07/10/18 [History] Vitamin E 400 unit PO 07/10/18 [History] Hx Tetanus, Diphtheria Vaccination/Date Given: Yes Hx Influenza Vaccination/Date Given: Yes (2015) Hx Pneumococcal Vaccination/Date Given: No - Review of Systems Constitutional: No Fever, No Chills Eyes: No Symptoms Ears, Nose, & Throat: No Symptoms Respiratory: No Cough, No Dyspnea Cardiac: No Chest Pain, No Edema, No Syncope Abdominal/Gastrointestinal: No Abdominal Pain, No Nausea, No Vomiting, No Diarrhea Genitourinary Symptoms: No Dysuria Musculoskeletal: Myalgias, No Back Pain, No Neck Pain Skin: No Rash Neurological: Tremors, No Dizziness, No Focal Weakness, No Sensory Changes Psychological: No Symptoms Endocrine: No Symptoms Hematologic/Lymphatic: No Symptoms Immunological/Allergic: No Symptoms All Other Systems: Reviewed and Negative - Past Medical History Pertinent Past Medical History: Yes Neurological History: No Pertinent History ENT History: No Pertinent History Cardiac History: High Cholesterol, Hypertension Respiratory History: Bronchitis Endocrine Medical History: Diabetes Type II, Hypothyroidism Musculoskeletal History: Arthritis GI Medical History: No Pertinent History History: No Pertinent History Psycho-Social History: Anxiety Female Reproductive Disorders: No Pertinent History Other Medical History: borderline DM - Past Surgical History Past Surgical History: Yes Neuro Surgical History: No Pertinent History Cardiac: No Pertinent History Respiratory: No Pertinent History Gastrointestinal: No Pertinent History Genitourinary: No Pertinent History Musculoskeletal: No Pertinent History Female Surgical History: No Pertinent History Other Surgical History: NO SURGERYS - Social History Smoking Status: Never smoker Exposure to second hand smoke: No Drug Use: none Patient Lives Alone: No Significant Family History: no pertinent family hx - Female History Hx Now: No - Nursing Vital Signs Nursing Vital Signs: Initial Vital Signs Temperature 98 F 07/10/18 00:57 Pulse Rate 100 H 07/10/18 00:57 Respiratory Rate 18 07/10/18 00:57 Blood Pressure 146/98 07/10/18 00:57 O2 Sat by Pulse Oximetry 100 07/10/18 00:57 Pain Scale Pain Intensity [Right Lower] 10 Pain Intensity [Left Lower] 10 Pain Intensity 10 - Physical Exam General Appearance: moderate distress Eyes, Ears, Nose, Throat Exam: moist mucous membranes Neck Exam: non-tender, supple Cardiovascular/Respiratory Exam: chest non-tender, normal breath sounds, regular rate/rhythm, no respiratory distress Gastrointestinal/Abdominal Exam: non-tender, guarding Back Exam: normal inspection, No vertebral tenderness Hips Exam: bilateral: non-tender, normal inspection Legs Exam: bilateral leg: non-tender, normal inspection Knees Exam: bilateral knee: non-tender, normal inspection Ankle Exam: bilateral ankle: non-tender, normal inspection Foot Exam: bilateral foot: non-tender, normal inspection Neuro/Tendon Exam: normal sensation, normal motor functions Mental Status Exam: alert, 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, cooperative Skin Exam: normal color, warm, dry SpO2 Interpretation: normal SpO2: 100 Oxygen Delivery: Room Air Ordered Tests: Medication Summary Generic Name Dose Route Start Last Admin Trade Name Freq PRN Reason Stop Dose Admin Gabapentin 300 mg 07/10/18 22:00 Neurontin 300 Mg PO 08/09/18 21:59 HS JAYDA Discontinued Medications Generic Name Dose Route Start Last Admin Trade Name Freq PRN Reason Stop Dose Admin Clonazepam 1 mg 07/10/18 01:42 Klonopin PO 07/10/18 01:43 QPM STA - Departure Time of Disposition: 01:51 Departure Disposition: Home Clinical Impression: Restless legs syndrome (RLS) Condition: Stable Critical Care Time: No Referrals: ANGELA SCHAFFER [Primary Care Provider] - Additional Instructions: You have uncontrolled restless leg syndrome. You were given gabapentin 300 mg and clonazepam 100 mg in the ER. Continue to take your prior medications as prescribed. Follow-up with your primary care doctor in 1-2 days.
[2018-07-10] MEDS ORDERED: NEURONTIN 300 MG PO SCH (22:00)
== END 2018-07-10 02:19 | disposition home or self-care (01) ==
LOC: ED 00:53
DX: G25.81 Restless legs syndrome (principal); Z79.899 Other long term (current) drug therapy
CPT/HCPCS: 99283; A9270-GY

== ENCOUNTER 2021-04-26 07:04 | Emergency (ER) | payer MEDICARE ==
[2021-04-26] MEDS ORDERED: Pepcid 20 MG PO ONE (07:17)
[2021-04-26] MEDS ORDERED: BENADRYL 50 MG/ML IV ONE (07:17)
[2021-04-26] MEDS ORDERED: solu-MEDROL 125 MG, Sterile H2O 10 ml 2 ML IV ONE ×2 (07:17)
[2021-04-26] MEDS ORDERED: BENADRYL 50 MG/ML ONE (07:24)
[2021-04-26] MEDS ORDERED: Pepcid 20 MG VIAL IV ONE (07:24)
--- NOTE | 2021-04-26 07:24 | ERPHSYRPT ---
- History of Present Illness Time Seen by Provider: 04/26/21 07:10 Source: patient Exam Limitations: no limitations Patient Subjective Stated Complaint: here for hives to body since last night Triage Nursing Assessment: pt walked in, resp easy, face mask in place, has hives to back and chest, Physician History: Patient is a 65-year-old female presents to emergency department with complaints of pruritus and hives. Symptoms started last night. No obvious new exposures. Patient states that she painted last night and prepared homemade ice cream but does not feel that these would have caused her symptoms. Patient otherwise feels well. She is breathing easily. No wheezing. No fullness of her throat. No diarrhea no abdominal pain. No nausea or vomiting. No chest pain or shortness of breath. Symptoms are mild in intensity. No specific worsening or improving factors. Patient has a history of allergies and has been treated in the past. However she has not been treated in the past couple years. Patient states she has been treated with steroids as this has been beneficial to her previous allergic reactions. Patient otherwise feels well. She voices no other complaints or concerns at this time. Timing/Duration: yesterday Severity: mild Modifying Factors: Improves With: nothing Associated Symptoms: denies symptoms Allergies/Adverse Reactions: No Known Drug Allergies Allergy (Verified 04/26/21 07:16) Home Medications: Levothyroxine Sodium 75 Mcg [Synthroid 75 Mcg] 75 mcg PO DAILY 11/07/13 [History] Venlafaxine HCl [Effexor] 150 mg PO DAILY 11/07/13 [History] Cinnamon Bark [Cinnamon] 1,000 mg PO DAILY 11/08/13 [History] Multivitamin [Multi-Vitamin Daily] 1 each PO DAILY 11/08/13 [History] Pravastatin Sodium 20 mg PO HS 11/08/13 [History] Calcium Citrate/Vitamin D3 [Calcium Citrate - Vit D Caplet] 1 each PO DAILY 10/01/15 [History] Cyanocobalamin (Vitamin B-12) [Vitamin B12] 500 mcg PO DAILY 10/01/15 [History] Potassium Gluconate 595 mg PO DAILY 10/01/15 [History] Raloxifene HCl 60 mg [Evista 60 MG] 60 mg PO DAILY 10/01/15 [History] Metformin HCl 500 mg [Glucophage 500 MG] 500 tablet PO DAILY 12/04/15 [History] Amlodipine Bes/Olmesartan Med [Artemio 5-40 mg Tablet] 1 each PO DAILY 10/24/16 [History] Ascorbic Acid [Vitamin C] 1,000 mg PO 07/10/18 [History] Pramipexole Di-HCl [Mirapex] 0.125 mg PO 07/10/18 [History] Ropinirole HCl 0.5 mg [Requip 0.5 MG] 0.5 mg PO 07/10/18 [History] Vitamin E 400 unit PO 07/10/18 [History] Hx Tetanus, Diphtheria Vaccination/Date Given: Yes Hx Influenza Vaccination/Date Given: No Hx Pneumococcal Vaccination/Date Given: No Travel Risk - International Travel Have you traveled outside of the country in past 3 weeks: No - Coronavirus Screening Are you exhibiting any of the following symptoms?: No - Vaccine Status Have you recieved a Covid-19 vaccination: Yes [employer]: [address] [employer] - Vaccination Dates Date of 2cond Vaccination (if applicable): february 15 - Review of Systems Constitutional: No Symptoms, No Fever, No Chills Eyes: No Symptoms Ears, Nose, & Throat: No Symptoms Respiratory: No Symptoms, No Cough, No Dyspnea Cardiac: No Symptoms, No Chest Pain, No Edema, No Syncope Abdominal/Gastrointestinal: No Symptoms, No Abdominal Pain, No Nausea, No Vomiting, No Diarrhea Genitourinary Symptoms: No Symptoms, No Dysuria Musculoskeletal: No Symptoms, No Back Pain, No Neck Pain Skin: No Symptoms, No Rash Neurological: No Symptoms, No Dizziness, No Focal Weakness, No Sensory Changes Psychological: No Symptoms Endocrine: No Symptoms Hematologic/Lymphatic: No Symptoms Immunological/Allergic: No Symptoms All Other Systems: Reviewed and Negative - Past Medical History Pertinent Past Medical History: Yes Neurological History: No Pertinent History ENT History: No Pertinent History Cardiac History: High Cholesterol, Hypertension Respiratory History: Bronchitis Endocrine Medical History: Diabetes Type II, Hypothyroidism Musculoskeletal History: Arthritis GI Medical History: No Pertinent History History: No Pertinent History Psycho-Social History: Anxiety Female Reproductive Disorders: No Pertinent History Other Medical History: borderline DM - Past Surgical History Past Surgical History: Yes Neuro Surgical History: No Pertinent History Cardiac: No Pertinent History Respiratory: No Pertinent History Gastrointestinal: No Pertinent History Genitourinary: No Pertinent History Musculoskeletal: No Pertinent History Female Surgical History: No Pertinent History Other Surgical History: NO SURGERYS - Social History Smoking Status: Never smoker Exposure to second hand smoke: No Drug Use: none Patient Lives Alone: No Significant Family History: no pertinent family hx - Female History Hx Last Menstrual Period: post Hx Now: No - Nursing Vital Signs Nursing Vital Signs: Initial Vital Signs Temperature 96.7 F 04/26/21 07:08 Pulse Rate 99 H 04/26/21 07:08 Respiratory Rate 18 04/26/21 07:08 Blood Pressure 166/87 04/26/21 07:08 O2 Sat by Pulse Oximetry 98 04/26/21 07:08 Pain Scale Pain Intensity 0 - Physical Exam General Appearance: no apparent distress, alert Eye Exam: PERRL/EOMI, eyes nml inspection Ears, Nose, Throat Exam: normal ENT inspection, TMs normal, pharynx normal, moist mucous membranes Neck Exam: normal inspection, non-tender, supple, full range of motion Respiratory Exam: normal breath sounds, lungs clear, No respiratory distress Cardiovascular Exam: regular rate/rhythm, normal heart sounds, normal peripheral pulses Gastrointestinal/Abdomen Exam: soft, normal bowel sounds, No tenderness, No mass Back Exam: normal inspection, normal range of motion, No CVA tenderness, No vertebral tenderness Extremity Exam: normal inspection, normal range of motion, pelvis stable Neurologic Exam: alert, 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, cooperative, normal mood/affect, nml cerebellar function, nml station & gait, sensation nml, No motor deficits Skin Exam: normal color, warm, dry, other (Small scattered hives on chest and arms. Skin otherwise intact. Patient voices no other complaints or concerns at this time.), No rash Lymphatic Exam: No adenopathy SpO2: 98 O2 Delivery: Room Air - Course Nursing assessment & vital signs reviewed: Yes Ordered Tests: Active Orders 24 hr Category Date Time Status IV Insertion STAT Care 04/26/21 07:17 Active Pulse Oximetry (ED) STAT Care 04/26/21 07:17 Active Medication Summary Discontinued Medications Generic Name Dose Route Start Last Admin Trade Name Wayne PRN Reason Stop Dose Admin Methylprednisolone Sodium 0 mg 04/26/21 07:17 04/26/21 07:35 Succinate 125 mg/ Sterile IV 04/26/21 07:18 125 mg Water 2 ml STAT ONE Administration Diphenhydramine HCl 25 mg 04/26/21 07:17 04/26/21 07:37 Benadryl 50 Mg/Ml IV 04/26/21 07:18 25 mg STAT ONE Administration Diphenhydramine HCl Confirm 04/26/21 07:24 Benadryl 50 Mg/Ml Administered 04/26/21 07:25 Dose 50 mg .ROUTE .STK-MED ONE Famotidine 20 mg 04/26/21 07:17 04/26/21 07:38 Pepcid 20 Mg PO 04/26/21 07:18 20 mg STAT ONE Administration Famotidine Confirm 04/26/21 07:24 Pepcid 20 Mg Vial Administered 04/26/21 07:25 Dose 20 mg IV .STK-MED ONE Famotidine Confirm 04/26/21 07:38 Pepcid 20 Mg Administered 04/26/21 07:39 Dose 20 mg .ROUTE .STK-MED ONE Methylprednisolone Sodium Succinate Confirm 04/26/21 07:25 Solu-Medrol Administered 04/26/21 07:26 Dose 125 mg .ROUTE .STK-MED ONE Sterile Water Confirm 04/26/21 07:25 Sterile H2o 10 Ml Administered 04/26/21 07:26 Dose 10 ml IJ .STK-MED ONE - Progress Progress: improved Progress Note: Patient reassessed. Hives improved. Patient denies shortness of breath difficulty breathing abdominal cramping diarrhea. Symptoms have essentially completely resolved. Patient ready for discharge. She voices no other complaints concerns at this time. Patient agrees to follow-up with her primary care doctor within 48 hours for reevaluation. 04/26/21 08:50 Counseled pt/family regarding: diagnosis, need for follow-up - Departure Departure Disposition: Home Clinical Impression: Hives, Drug reaction, Pruritus Condition: Stable Critical Care Time: No Referrals: ANGELA MORTENSEN [Primary Care Provider] - Instructions: Viral Exanthem (DC) Additional Instructions: Discharge/Care Plan MOSHE GOMEZ was seen on 04/26/21 in the Emergency Room. The patient was counseled regarding Diagnosis,Lab results, Imaging studies, need for follow up and when to return to the Emergency Room. Prescriptions given: Discharge Note I have spoken with the patient and/or caregivers. I have explained the patient's condition, diagnosis and treatment plan based on the information available to me at this time. I have answered the patient's and/or caregiver's questions and add ressed any concerns. The patient and/or caregivers have as good understanding of the patient's diagnosis, condition and treatment plan as can be expected at this point. The vital signs have been stable. The patient's condition is stable and appropriate for discharge from the emergency department. The patient will pursue further outpatient evaluation with the primary care physician or other designated or consulting physician as outlined in the discharge instructions. The patient and/or caregivers are agreeable to this plan of care and follow-up instructions have been explained in detail. The patient and/or caregivers have received these instruction. The patient/and or caregivers are aware that any significant change in condition or worsening of symptoms should prompt an immediate return to this or the closest emergency department or call 911. Prescriptions: Epinephrine [Auvi-Q] 0.3 mg IJ 1HRPRIOR 1 Days #2 auto.injct Prednisone 10 mg [Deltasone 10 mg] 40 mg PO DAILY 3 Days #12 tablet
[2021-04-26] MEDS ORDERED: Sterile H2O 10 ml IJ ONE (07:25)
[2021-04-26] MEDS ORDERED: solu-MEDROL ONE (07:25)
[2021-04-26] MEDS ORDERED: Pepcid 20 MG ONE (07:38)
[2021-04-26 08:11] VITALS: BP 158/79
[2021-04-26 09:15] VITALS: PULSE 92; O2SAT 99
== END 2021-04-26 09:15 | disposition home or self-care (01) ==
LOC: ED 07:04
DX: L50.9 Urticaria, unspecified (principal); L29.9 Pruritus, unspecified; T50.905A Adverse effect of unspecified drugs, medicaments and biological substances, initial encounter; Z79.899 Other long term (current) drug therapy; E11.9 Type 2 diabetes mellitus without complications; I10 Essential (primary) hypertension; E03.9 Hypothyroidism, unspecified
CPT/HCPCS: 36000; 94760; 96374; 96375; 99284; J1200; J2930; A9270-GY

== ENCOUNTER 2021-06-08 06:41 | Day surgery (SDC) | payer MEDICARE ==
[~2021-06-08 06:41] MED LIST: Lactated Ringers 1,000 ML IV SCH
[2021-06-08] MEDS ORDERED: Lactated Ringers 1,000 ML IV ONE (06:48)
[2021-06-08] MEDS ORDERED: DIPRIVAN 200 MG/20 ML IV ONE ×3 (07:57→08:15)
[2021-06-08 09:43] VITALS: BP 154/84; PULSE 85; O2SAT 95
--- NOTE | 2021-06-08 14:07 | OP ---
SURGERY DATE/TIME: 06/08/2021 0755 PREOPERATIVE DIAGNOSIS: Hematochezia. POSTOPERATIVE DIAGNOSES: 1) Small polyps in the sigmoid and descending colon 2) Internal hemorrhoids. PROCEDURE: Colonoscopy with cold forceps biopsy. SURGEON: Dr. Jones. ANESTHESIA: MAC. Medications given by anesthesia department. HISTORY: The patient is a 65 year-old white female who reports she has been having intermittent rectal bleeding. The patient denies any change in bowel habits otherwise. She did have a previous colonoscopy six years ago which was negative. The patient is felt to need to have endoscopic evaluation. She was appraised of the risks of the procedure including the risk of perforation, phlebitis, untoward reaction to medication, bleeding and missed lesions. The patient verbalized her understanding and desired to have the procedure performed. DESCRIPTION OF PROCEDURE: The patient was given the medications by the anesthesia department. She had continuous pulse oximetry, ECG monitoring, intermittent blood pressure monitoring and tidal CO2 monitoring during the examination. She was placed in the left lateral decubitus position. A digital rectal examination was performed and revealed internal hemorrhoids. No masses were otherwise felt and normal anal sphincter tone. The flexible Olympus pediatric colonoscope was used to intubate the rectum. A view of the colon was developed sequentially to the cecum. Upon insertion and withdrawal was noted small polyps in the sigmoid and descending colon. These were destroyed using passes of the cold forceps biopsy. The scope was then removed from the patient who tolerated the procedure well and was sent back to OP recovery in good condition. The prep was noted to be fair.
== END 2021-06-08 09:35 | disposition home or self-care (01) ==
LOC: SDC 06:41
PROVIDERS: ATTEND Family Medicine
DX: D12.4 Benign neoplasm of descending colon (principal); D12.5 Benign neoplasm of sigmoid colon; K92.1 Melena; K64.8 Other hemorrhoids; E11.9 Type 2 diabetes mellitus without complications; Z79.899 Other long term (current) drug therapy
CPT/HCPCS: 82947; 88305; J2704

== ENCOUNTER 2021-12-20 20:26 | Emergency (ER) | payer MEDICARE ==
[2021-12-20] MEDS ORDERED: TORAdol 30 mg Injection IV ONE (20:54)
[2021-12-20] MEDS ORDERED: GI COCKTAIL 45 ML (Maalox/Lidocaine) PO ONE (20:54)
[2021-12-20] MEDS ORDERED: Sodium Chloride 0.9% 1000 ML 1,000 ML IV STA (20:54)
[2021-12-20] MEDS ORDERED: Zofran 4 MG/2 ML VIAL IV ONE (20:54)
[2021-12-20] MEDS ORDERED: MAALOX ES 30 ML UNIT DOSE ONE (21:03)
[2021-12-20] MEDS ORDERED: Sodium Chloride 0.9% 1000 ML 1,000 ML ONE (21:03)
[2021-12-20] MEDS ORDERED: XYLOCAINE HCl Viscous ONE (21:03)
[2021-12-20] MEDS ORDERED: Zofran 4 MG/2 ML VIAL ONE (21:03)
[2021-12-20] MEDS ORDERED: TORAdol 30 mg Injection ONE (21:03)
[2021-12-20 21:08] LABS: Appearance CLEAR (CLEAR); Bacteria RARE /HPF (NEGATIVE); Bilirubin NEGATIVE (NEGATIVE); Blood NEGATIVE Ery/ul (0-5); Epithelial Cells RARE /HPF (FEW); Glucose NEGATIVE (NEGATIVE); Ketones NEGATIVE (NEGATIVE); Leukocyte Esterase NEGATIVE (NEGATIVE); Mucus SLIGHT /HPF (NEGATIVE); Nitrite NEGATIVE (NEGATIVE); Protein,Urine Dip NEGATIVE (Negative); Specific Gravity 1.018 (1.005-1.025); Urobilinogen NEGATIVE mg/dL (0-1)
--- NOTE | 2021-12-20 21:10 | ERPHSYRPT ---
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 Describes pain as "normal" for her but states that "I can usually get it to go away on my own by now." States pain has been going on all day today with no relief. Denies SOB. Triage Nursing Assessment: Patient ambulated back to ED without difficulties. She is alert and oriented and answering questions appropriately. No SOB noted. Hyperactive bowel sounds present in all quads. No abdominal tenderness or c/o pain with palpation. Physician History: Patient here with acute on chronic epigastric pain. Reviewing chart, pain has been going on for over a year, intermittently. Patient recently had a colonoscopy done that demonstrated some polyps. Otherwise, no obvious cause for symptoms. Patient is not on a PPI or other H2 nas. She has no new falls or trauma. She describes it as a burning sensation. No stabbing chest pain, no pain radiating to her back. Lower suspicion for aortic dissection or acute [place]. Timing/Duration: today Activities at Onset: none Quality: dullness Abdominal Pain Onset Location: epigastric Pain Radiation: no radiation Severity of Pain-Max: mild Severity of Pain-Current: mild Modifying Factors: Improves With: analgesics Associated Symptoms: denies symptoms Previous symptoms: same symptoms as today Allergies/Adverse Reactions: No Known Drug Allergies Allergy (Verified 12/20/21 20:36) Home Medications: Levothyroxine Sodium 75 Mcg [Synthroid 75 Mcg] 100 mcg PO DAILY 11/07/13 [History] Venlafaxine HCl [Effexor] 150 mg PO DAILY 11/07/13 [History] Pravastatin Sodium 20 mg PO HS 11/08/13 [History] Calcium Citrate/Vitamin D3 [Calcium Citrate - Vit D Caplet] 1 each PO DAILY 10/01/15 [History] Cyanocobalamin (Vitamin B-12) [Vitamin B12] 500 mcg PO DAILY 10/01/15 [History] Metformin HCl 500 mg [Glucophage 500 MG] 500 tablet PO BID 12/04/15 [History] Ropinirole HCl 0.5 mg [Requip 0.5 MG] 2 mg PO BID 07/10/18 [History] Docusate Sodium [Stool Softener] 100 mg PO DAILY 06/07/21 [History] Ferrous Sulfate [Iron] 325 mg DAILY 06/07/21 [History] Glimepiride 2 mg [Amaryl 2 MG] 2 mg PO DAILY 06/07/21 [History] Magnesium Oxide 400 mg [Mag-Ox 400] 400 mg PO HS 06/07/21 [History] Melatonin 20 mg PO HS 06/07/21 [History] Valsartan 160 mg PO DAILY 06/07/21 [History] Vit A/Vit C/Vit E/Zinc/Copper [Preservision Areds Tablet] 1 each PO BID 06/07/21 [History] Calcium Carbonate 750 mg [Tums EX 750 MG] 1 tab PO Q4-6HPRN PRN 12/20/21 [History] Hx Tetanus, Diphtheria Vaccination/Date Given: Yes Hx Influenza Vaccination/Date Given: Yes Hx Pneumococcal Vaccination/Date Given: No Immunizations Up to Date: Yes Travel Risk - International Travel Have you traveled outside of the country in past 3 weeks: No - Coronavirus Screening Are you exhibiting any of the following symptoms?: No Close contact with a COVID-19 positive Pt in past 14-21 Days: No - Vaccine Status Have you recieved a Covid-19 vaccination: Yes 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 - Vaccination Dates Date of 2cond Vaccination (if applicable): february 15 - Review of Systems Constitutional: No Fever, No Chills Eyes: No Symptoms Ears, Nose, & Throat: No Symptoms Respiratory: No Cough, No Dyspnea Cardiac: No Chest Pain, No Edema, No Syncope Abdominal/Gastrointestinal: No Abdominal Pain, No Nausea, No Vomiting, No Diarrhea Genitourinary Symptoms: No Dysuria Musculoskeletal: No Back Pain, No Neck Pain Skin: No Rash Neurological: No Dizziness, No Focal Weakness, No Sensory Changes Psychological: No Symptoms Endocrine: No Symptoms All Other Systems: Reviewed and Negative - Past Medical History Pertinent Past Medical History: Yes Neurological History: No Pertinent History ENT History: Cataracts Cardiac History: High Cholesterol, Hypertension Respiratory History: Other Endocrine Medical History: Diabetes Type II, Hypothyroidism Musculoskeletal History: Osteoarthritis GI Medical History: GERD, Polyps History: No Pertinent History Psycho-Social History: Anxiety Female Reproductive Disorders: No Pertinent History Other Medical History: HX OF COVID - Past Surgical History Past Surgical History: Yes Neuro Surgical History: No Pertinent History Cardiac: No Pertinent History Respiratory: No Pertinent History Gastrointestinal: No Pertinent History Genitourinary: No Pertinent History Musculoskeletal: No Pertinent History Female Surgical History: Dilation & Curettage Other Surgical History: colonoscopy - Social History Smoking Status: Never smoker Exposure to second hand smoke: No Drug Use: none Patient Lives Alone: Yes Significant Family History: no pertinent family hx - Nursing Vital Signs Nursing Vital Signs: Initial Vital Signs Temperature 98.4 F 12/20/21 20:37 Pulse Rate 89 12/20/21 20:37 Respiratory Rate 19 12/20/21 20:37 Blood Pressure 154/76 12/20/21 20:37 O2 Sat by Pulse Oximetry 97 12/20/21 20:37 Pain Scale Pain Intensity 5 - Physical Exam General Appearance: no apparent distress, alert Eye Exam: PERRL/EOMI, eyes nml inspection Ears, Nose, Throat Exam: normal ENT inspection, pharynx normal, moist mucous membranes Neck Exam: normal inspection, non-tender, supple, full range of motion Respiratory Exam: normal breath sounds, lungs clear, No respiratory distress Cardiovascular Exam: regular rate/rhythm, normal heart sounds Gastrointestinal/Abdomen Exam: soft, No tenderness, No mass Back Exam: normal inspection, normal range of motion, No CVA tenderness, No vertebral tenderness Extremity Exam: normal inspection, normal range of motion, pelvis stable Neurologic Exam: alert, 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, cooperative, normal mood/affect, nml cerebellar function, sensation nml, No motor deficits Skin Exam: normal color, warm, dry SpO2: 97 - Course Nursing assessment & vital signs reviewed: Yes EKG Interpreted by Me: Sinus Rhythm Ordered Tests: Active Orders 24 hr Category Date Time Status EKG-ER Only STAT Care 12/20/21 20:54 Active IV Insertion STAT Care 12/20/21 20:54 Active CHEST 2 VIEWS (PA AND LAT) Stat Exams 12/20/21 20:54 Taken CBC W DIFF Stat Lab 12/20/21 21:05 Completed CMP Stat Lab 12/20/21 21:05 Completed CULTURE,URINE Stat Lab 12/20/21 21:01 Received LIPASE Stat Lab 12/20/21 21:05 Completed TROPONIN Q3H Lab 12/20/21 21:05 Completed TROPONIN Q3H Lab 12/21/21 00:00 Ordered TROPONIN Q3H Lab 12/21/21 03:00 Ordered TROPONIN Q3H Lab 12/21/21 06:00 Ordered TROPONIN Q3H Lab 12/21/21 09:00 Ordered UA W/RFX UR CULTURE Stat Lab 12/20/21 21:01 Completed Medication Summary Discontinued Medications Generic Name Dose Route Start Last Admin Trade Name Wayne PRN Reason Stop Dose Admin Al Hydrox/Mg Hydrox/Simethicone Confirm 12/20/21 21:03 Mag Hydrox/Al Hydrox/Simeth 30 Ml Udcup Administered 12/20/21 21:04 Dose 30 ml .ROUTE .STK-MED ONE Sodium Chloride 1,000 mls @ 999 mls/hr 12/20/21 20:54 12/20/21 21:12 Sodium Chloride 0.9% 1000 Ml IV 12/20/21 21:54 999 mls/hr .Q1H1M STA Administration Sodium Chloride Confirm 12/20/21 21:03 Sodium Chloride 0.9% 1000 Ml Administered 12/20/21 21:04 Dose 1,000 mls @ ud .ROUTE .STK-MED ONE Ketorolac Tromethamine 30 mg 12/20/21 20:54 12/20/21 21:12 Ketorolac Tromethamine 30 Mg/Ml Inj IV 12/20/21 20:55 30 mg STAT ONE Administration Ketorolac Tromethamine Confirm 12/20/21 21:03 Ketorolac Tromethamine 30 Mg/Ml Inj Administered 12/20/21 21:04 Dose 30 mg .ROUTE .STK-MED ONE Lidocaine HCl Confirm 12/20/21 21:03 Lidocaine Hcl Viscous 1 Ml Administered 12/20/21 21:04 Dose 15 ml .ROUTE .STK-MED ONE Magnesium Hydroxide 45 ml 12/20/21 20:54 12/20/21 21:19 Mag Hydrx/Alum Hyd/Simeth/Lido 45 Ml Bottle PO 12/20/21 20:55 45 ml STAT ONE Administration Ondansetron HCl 4 mg 12/20/21 20:54 12/20/21 21:12 Ondansetron Hcl 4 Mg/2 Ml Vial IV 12/20/21 20:55 4 mg STAT ONE Administration Ondansetron HCl Confirm 12/20/21 21:03 Ondansetron Hcl 4 Mg/2 Ml Vial Administered 12/20/21 21:04 Dose 4 mg .ROUTE .STK-MED ONE Lab/Rad Data: Laboratory Result Diagrams 12/20/21 21:05 03/07/22 21:05 Laboratory Results 12/20/21 12/20/21 12/20/21 Range/Units 21:05 21:05 21:05 WBC 8.5 (4.0-10.5) K/mm3 RBC 4.59 (4.1-5.4) M/mm3 Hgb 14.4 (12.0-16.0) gm/dl Hct 42.2 (35-47) % MCV 91.9 (78-100) fl MCH 31.4 (26-32) pg MCHC 34.1 (32-36) g/dl RDW 14.0 (11.5-14.0) % Plt Count 150 (150-450) K/mm3 MPV 8.2 (7.5-11.0) fl Gran % 65.4 (36.0-66.0) % Eos # (Auto) 0.10 (0-0.5) Absolute Lymphs (auto) 2.21 (1.0-4.6) Absolute Monos (auto) 0.62 (0.0-1.3) Lymphocytes % 26.0 (24.0-44.0) % Monocytes % 7.3 (0.0-12.0) % Eosinophils % 1.2 (0.00-5.0) % Basophils % 0.1 (0.0-0.4) % Absolute Granulocytes 5.57 (1.4-6.9) Basophils # 0.01 (0-0.4) Sodium 134 L (137-145) mmol/L Potassium 4.4 (3.5-5.1) mmol/L Chloride 96 L (98-107) mmol/L Carbon Dioxide 29 (22-30) mmol/L Anion Gap 14.1 (5-15) MEQ/L BUN 13 (7-17) mg/dL Creatinine 0.55 (0.52-1.04) mg/dL Estimated GFR > 60.0 ML/MIN Glucose 163 H (74-106) mg/dL Calcium 10.2 (8.4-10.2) mg/dL Total Bilirubin 0.60 (0.2-1.3) mg/dL AST 30 (14-36) U/L ALT 24 (0-35) U/L Alkaline Phosphatase 116 (38-126) U/L Troponin I < 0.012 (0.000-0.034) ng/mL Serum Total Protein 7.6 (6.3-8.2) g/dL Albumin 4.6 (3.5-5.0) g/dL Lipase 209 (23-300) U/L Urine Color (YELLOW) Urine Appearance (CLEAR) Urine pH (5-6) Ur Specific [place] (1.005-1.025) Urine Protein (Negative) Urine Ketones (NEGATIVE) Urine Blood (0-5) Rao/ul Urine Nitrite (NEGATIVE) Urine Bilirubin (NEGATIVE) Urine Urobilinogen (0-1) mg/dL Ur Leukocyte Esterase (NEGATIVE) Urine WBC (Auto) (0-5) /HPF Urine RBC (Auto) (0-2) /HPF U Epithel Cells (Auto) (FEW) /HPF Urine Bacteria (Auto) (NEGATIVE) /HPF Urine Mucus (Auto) (NEGATIVE) /HPF Urine Culture Reflexed (NO) Urine Glucose (NEGATIVE) mg/dL 12/20/21 Range/Units 21:01 WBC (4.0-10.5) K/mm3 RBC (4.1-5.4) M/mm3 Hgb (12.0-16.0) gm/dl Hct (35-47) % MCV (78-100) fl MCH (26-32) pg MCHC (32-36) g/dl RDW (11.5-14.0) % Plt Count (150-450) K/mm3 MPV (7.5-11.0) fl Gran % (36.0-66.0) % Eos # (Auto) (0-0.5) Absolute Lymphs (auto) (1.0-4.6) Absolute Monos (auto) (0.0-1.3) Lymphocytes % (24.0-44.0) % Monocytes % (0.0-12.0) % Eosinophils % (0.00-5.0) % Basophils % (0.0-0.4) % Absolute Granulocytes (1.4-6.9) Basophils # (0-0.4) Sodium (137-145) mmol/L Potassium (3.5-5.1) mmol/L Chloride (98-107) mmol/L Carbon Dioxide (22-30) mmol/L Anion Gap (5-15) MEQ/L BUN (7-17) mg/dL Creatinine (0.52-1.04) mg/dL Estimated GFR ML/MIN Glucose (74-106) mg/dL Calcium (8.4-10.2) mg/dL Total Bilirubin (0.2-1.3) mg/dL AST (14-36) U/L ALT (0-35) U/L Alkaline Phosphatase (38-126) U/L Troponin I (0.000-0.034) ng/mL Serum Total Protein (6.3-8.2) g/dL Albumin (3.5-5.0) g/dL Lipase (23-300) U/L Urine Color YELLOW (YELLOW) Urine Appearance CLEAR (CLEAR) Urine pH 9.0 (5-6) Ur Specific [place] 1.018 (1.005-1.025) Urine Protein NEGATIVE (Negative) Urine Ketones NEGATIVE (NEGATIVE) Urine Blood NEGATIVE (0-5) Rao/ul Urine Nitrite NEGATIVE (NEGATIVE) Urine Bilirubin NEGATIVE (NEGATIVE) Urine Urobilinogen NEGATIVE (0-1) mg/dL Ur Leukocyte Esterase NEGATIVE (NEGATIVE) Urine WBC (Auto) 6-10 (0-5) /HPF Urine RBC (Auto) 6-10 (0-2) /HPF U Epithel Cells (Auto) RARE (FEW) /HPF Urine Bacteria (Auto) RARE (NEGATIVE) /HPF Urine Mucus (Auto) SLIGHT (NEGATIVE) /HPF Urine Culture Reflexed ORDERED SEPARATELY (NO) Urine Glucose NEGATIVE (NEGATIVE) mg/dL - Progress Progress: improved Progress Note: 12/20/21 21:09 Differential diagnosis includes [place], aortic dissection, gastric reflux disease, pneumonia, electrolyte abnormality. - We'll obtain basic labs, fluids, EKG, troponin, chest x-ray - I feel comfortable with one time negative troponin given symptoms have improved and started greater then 6 hours ago. - EKG shows no ST changes - my read. See full read below. - O2 saturations consistently greater than 95%. - CXR shows no pneumonia, pneumothorax - my read - no other obvious lab abnormalities 12/20/21 22:10 All labs and imaging is returned unremarkable. Patient feeling much improved. Patient denies ever being on a PPI, other H2 nas. Therefore we will try omeprazole going home. She should return here immediately for any new or changing symptoms. Follow-up with her PCP tomorrow. - Departure Departure Disposition: Home Clinical Impression: Epigastric abdominal pain Condition: Stable Critical Care Time: No Referrals: ANGELA LESTER [Primary Care Provider] - Follow up/PCP as directed Instructions: Acute Abdomen (Belly Pain) Prescriptions: Omeprazole 20 mg PO DAILY 60 Days #60
[2021-12-20 21:13] LABS: Absolute Neutrophil Ct (ANC) 5.57 (1.4-6.9); Basophil (Absolute #) 0.01 (0-0.4); Eosinophil % 1.2 % (0.00-5.0); Hematocrit 42.2 % (35-47); Hemoglobin 14.4 gm/dl (12.0-16.0); Lymphocyte (Absolute #) 2.21 (1.0-4.6); Mean Cell Volume 91.9 fl (78-100); Mean Corpuscular Hemoglobin 31.4 pg (26-32); Mean Corpuscular Hgb Concent. 34.1 g/dl (32-36); Mean Platelet Volume 8.2 fl (7.5-11.0); Monocyte (Absolute #) 0.62 (0.0-1.3); Monocytes % 7.3 % (0.0-12.0); Neutrophil % 65.4 % (36.0-66.0); Platelet Count 150 K/mm3 (150-450); Red Blood Count 4.59 M/mm3 (4.1-5.4); White Blood Count 8.5 K/mm3 (4.0-10.5)
[2021-12-20 21:25] LABS: ALBUMIN 4.6 g/dL (3.5-5.0); ALKALINE PHOSPHATASE 116 U/L (38-126); ANION GAP 14.1 MEQ/L (5-15); BLOOD UREA NITROGEN 13 mg/dL (7-17); CHLORIDE 96 mmol/L (98-107); Calcium 10.2 mg/dL (8.4-10.2); Carbon Dioxide 29 mmol/L (22-30); Creatinine 1 0.55 mg/dL (0.52-1.04); EST GLOMERULAR FILTRATION RATE > 60.0 ML/MIN; Glucose 163 mg/dL (74-106); LIPASE 209 U/L (23-300); Potassium 4.4 mmol/L (3.5-5.1); SGOT/AST 30 U/L (14-36); SGPT/ALT 24 U/L (0-35); SODIUM 134 mmol/L (137-145); Total Protein 7.6 g/dL (6.3-8.2)
[2021-12-20 22:10] VITALS: BP 117/62; PULSE 88
[2021-12-20 22:11] VITALS: O2SAT 97
--- NOTE | 2021-12-21 08:47 | XRAY ---
Indication: Chest pain. Comparison: October 07, 2018. PA/lateral chest unchanged again demonstrating minimal left base atelectasis/scarring. Remaining heart and lungs unremarkable. Bony thorax intact again with mild degenerative changes. No new/acute findings.
== END 2021-12-20 22:17 | disposition home or self-care (01) ==
LOC: ED 20:26
DX: R10.13 Epigastric pain (principal); G89.29 Other chronic pain; E78.5 Hyperlipidemia, unspecified; I10 Essential (primary) hypertension; E11.9 Type 2 diabetes mellitus without complications; Z79.84 Long term (current) use of oral hypoglycemic drugs; K21.9 Gastro-esophageal reflux disease without esophagitis; Z86.16 Personal history of COVID-19; Z79.899 Other long term (current) drug therapy
CPT/HCPCS: 36000; 36415; 71046; 80053; 81001; 83690; 84484; 85025; 87086; 93005; 96374; 96375; 99284; J1885; J2405; A9270-GY

== ENCOUNTER 2022-05-30 11:10 | Emergency (ER) | payer MEDICARE ==
--- NOTE | 2022-05-30 11:16 | ERPHSYRPT ---
- History of Present Illness Time Seen by Provider: 05/30/22 11:16 Source: patient Exam Limitations: no limitations Physician History: This is a 66-year-old white female who is a patient of Dr. Jairo Craven and presents with headache and body aches and just "not feeling well". She does not specifically complain of chest pain or abdominal pain. She has no history of exposure to any individuals that she is aware of the had COVID-19 infection or other viral infections. She denies fevers and chills she denies shortness of breath. She is had no nausea vomiting or diarrhea. Patient does have a history of hypertension, type 2 diabetes, hypothyroidism, and hyperlipidemia. Timing/Duration: yesterday Quality: aching Head Pain Location: global (Mild) Severity of Pain-Max: mild (To moderate) Severity of Pain-Current: mild Recent Head Trauma: no recent headache/trauma, occasional headaches Associated Symptoms: weakness, other (Left eyes subconjunctival hemorrhage) Previous symptoms: no prior history Allergies/Adverse Reactions: No Known Drug Allergies Allergy (Verified 05/30/22 13:40) Home Medications: Levothyroxine Sodium 75 Mcg [Synthroid 75 Mcg] 100 mcg PO DAILY 11/07/13 [History] Venlafaxine HCl [Effexor] 150 mg PO DAILY 11/07/13 [History] Pravastatin Sodium 20 mg PO HS 11/08/13 [History] Calcium Citrate/Vitamin D3 [Calcium Citrate - Vit D Caplet] 1 each PO DAILY 10/01/15 [History] Cyanocobalamin (Vitamin B-12) [Vitamin B12] 500 mcg PO DAILY 10/01/15 [History] Metformin HCl 500 mg [Glucophage 500 MG] 500 tablet PO BID 12/04/15 [History] Ropinirole HCl 0.5 mg [Requip 0.5 MG] 2 mg PO BID 07/10/18 [History] Docusate Sodium [Stool Softener] 100 mg PO DAILY 06/07/21 [History] Ferrous Sulfate [Iron] 325 mg DAILY 06/07/21 [History] Glimepiride 2 mg [Amaryl 2 MG] 2 mg PO DAILY 06/07/21 [History] Magnesium Oxide 400 mg [Mag-Ox 400] 400 mg PO HS 06/07/21 [History] Melatonin 20 mg PO HS 06/07/21 [History] Valsartan 160 mg PO DAILY 06/07/21 [History] Vit A/Vit C/Vit E/Zinc/Copper [Preservision Areds Tablet] 1 each PO BID 06/07/21 [History] Calcium Carbonate 750 mg [Tums EX 750 MG] 1 tab PO Q4-6HPRN PRN 12/20/21 [History] Glimepiride 2 mg [Amaryl 2 MG] 2 mg PO DAILY 05/30/22 [History] Levothyroxine Sodium 1 ea DAILY 05/30/22 [History] Metformin HCl 500 mg [Glucophage 500 MG] 500 mg PO BIDWM 05/30/22 [History] Pravastatin Sodium 20 mg PO DAILY 05/30/22 [History] Ropinirole 2Mg [Requip 2Mg Tab] 1 ea DAILY 05/30/22 [History] Semaglutide [Ozempic] 1 mg SQ UD 05/30/22 [History] Trazodone HCl 50 mg [Desyrel 50 mg] 50 mg PO DAILY 05/30/22 [History] Valsartan 20 mg PO DAILY 05/30/22 [History] Venlafaxine HCl ER 75 mg [Effexor XR 75 MG] 75 mg PO DAILY 05/30/22 [History] Travel Risk - International Travel Have you traveled outside of the country in past 3 weeks: No - Coronavirus Screening Are you exhibiting any of the following symptoms?: No Close contact with a COVID-19 positive Pt in past 14-21 Days: No - Review of Systems Constitutional: Weakness Eyes: No Symptoms Ears, Nose, & Throat: No Symptoms Respiratory: No Symptoms Cardiac: No Symptoms Abdominal/Gastrointestinal: No Symptoms Genitourinary Symptoms: No Symptoms Musculoskeletal: Arthralgias, Myalgias Skin: No Symptoms Neurological: Headache Psychological: No Symptoms Endocrine: No Symptoms Hematologic/Lymphatic: No Symptoms Immunological/Allergic: No Symptoms All Other Systems: Reviewed and Negative - Past Medical History Pertinent Past Medical History: Yes - Past Surgical History Past Surgical History: Yes - Nursing Vital Signs Nursing Vital Signs: Initial Vital Signs Temperature 97.0 F 05/30/22 11:21 Pulse Rate 82 05/30/22 11:21 Respiratory Rate 16 05/30/22 11:21 Blood Pressure 177/87 05/30/22 11:21 O2 Sat by Pulse Oximetry 95 05/30/22 11:21 Pain Scale Pain Intensity 6 - Physical Exam General Appearance: no apparent distress, alert, anxiety Eye Exam: other (Left subconjunctival hemorrhagemedial aspect) Ears, Nose, Throat Exam: normal ENT inspection, moist mucous membranes Neck Exam: normal inspection, non-tender, supple, full range of motion Respiratory Exam: normal breath sounds, chest tenderness, lungs clear, respiratory distress Cardiovascular Exam: regular rate/rhythm, normal heart sounds, normal peripheral pulses Gastrointestinal/Abdominal Exam: soft, normal bowel sounds, No tenderness Back Exam: normal inspection, normal range of motion Extremity Exam: normal inspection, normal range of motion, pelvis stable Mental Status 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, 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, 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 Exam: normal hearing, normal speech, PERRL Coordination/Gait Exam: normal finger to nose, normal gait, normal cerebellar function Motor/Sensory Exam: no motor deficit, no sensory deficit, no pronator drift Skin Exam: normal color, warm, dry Lymphatic Exam: No adenopathy SpO2 Interpretation: normal O2 Delivery: Room Air - Course Nursing assessment & vital signs reviewed: Yes Ordered Tests: Active Orders 24 hr Category Date Time Status EKG-ER Only STAT Care 05/30/22 12:19 Active HEAD WITHOUT CONTRAST [CT] Routine Exams 05/30/22 12:36 Taken CBC W DIFF Stat Lab 05/30/22 12:35 Completed CMP Stat Lab 05/30/22 12:35 Completed [place]ombs Screen Stat Lab 05/30/22 12:35 Completed NT PRO BNP Stat Lab 05/30/22 12:35 Completed TROPONIN Q4H Lab 05/30/22 12:35 Completed TROPONIN Q4H Lab 05/30/22 16:30 Ordered TROPONIN Q4H Lab 05/30/22 20:30 Ordered UA W/RFX CULTURE Stat Lab 05/30/22 13:59 Completed Lab/Rad Data: Laboratory Result Diagrams 05/30/22 12:35 05/30/22 12:35 Laboratory Results 05/30/22 05/30/22 05/30/22 Range/Units 13:59 12:35 12:35 WBC (4.0-10.5) x10^3/uL RBC (4.1-5.4) x10^6/uL Hgb (12.0-16.0) g/dL Hct (35-47) % MCV (78-100) fL MCH (26-32) pg MCHC (32-36) g/dL RDW (11.5-14.0) % Plt Count (150-450) x10^3/uL MPV (7.5-11.0) fL Gran % (36.0-66.0) % Immature Gran % (Auto) (0.00-0.4) % Nucleat RBC Rel Count (0.00-0.1) % Eos # (Auto) (0-0.5) x10^3/uL Immature Gran # (Auto) (0.00-0.03) x10^3u/L Absolute Lymphs (auto) (1.0-4.6) x10^3/uL Absolute Monos (auto) (0.0-1.3) x10^3/uL Absolute Nucleated RBC (0.00-0.01) x10^3u/L Lymphocytes % (24.0-44.0) % Monocytes % (0.0-12.0) % Eosinophils % (0.00-5.0) % Basophils % (0.0-0.4) % Absolute Granulocytes (1.4-6.9) x10^3/uL Basophils # (0-0.4) x10^3/uL Sodium (137-145) mmol/L Potassium (3.5-5.1) mmol/L Chloride (98-107) mmol/L Carbon Dioxide (22-30) mmol/L Anion Gap (5-15) MEQ/L BUN (7-17) mg/dL Creatinine (0.52-1.04) mg/dL Estimated GFR ML/MIN Glucose (74-106) mg/dL Calcium (8.4-10.2) mg/dL Total Bilirubin (0.2-1.3) mg/dL AST (14-36) U/L ALT (0-35) U/L Alkaline Phosphatase (38-126) U/L Troponin I < 0.012 (0.000-0.034) ng/mL NT-Pro-B Natriuret Pep (0-900) pg/mL Serum Total Protein (6.3-8.2) g/dL Albumin (3.5-5.0) g/dL Urinalys Dipstick Clnc MAIN LAB Urine Color YELLOW (YELLOW) Urine Appearance CLEAR (CLEAR) Urine pH 6.0 (5-6) Ur Specific Blum 1.025 (1.005-1.025) POC Urine Protein Conf NEGATIVE (Negative) Urine Ketones NEGATIVE (NEGATIVE) Urine Nitrite NEGATIVE (NEGATIVE) Urine Bilirubin NEGATIVE (NEGATIVE) Urine Urobilinogen 0.2 (0-1) mg/dL Urine Leukocytes NEGATIVE (NEGATIVE) Urine WBC (Auto) NONE (0-5) /HPF Urine RBC (Auto) 0-2 (0-2) /HPF U Epithel Cells (Auto) NONE (FEW) /HPF Urine Bacteria (Auto) NONE (NEGATIVE) /HPF Urine RBC NEGATIVE (0-5) Rao/ul Ur Culture Indicated? NO Urine Glucose NEGATIVE (NEGATIVE) mg/dL Monoscreen (Negative) Influenza Type A Ag NEGATIVE (NEGATIVE) Influenza Type B Ag NEGATIVE (NEGATIVE) RSV (PCR) NEGATIVE (Negative) SARS-CoV-2 (PCR) NEGATIVE (NEGATIVE) 05/30/22 05/30/22 05/30/22 Range/Units 12:35 12:35 12:35 WBC 6.6 (4.0-10.5) x10^3/uL RBC 4.16 (4.1-5.4) x10^6/uL Hgb 13.1 (12.0-16.0) g/dL Hct 38.9 (35-47) % MCV 93.5 (78-100) fL MCH 31.5 (26-32) pg MCHC 33.7 (32-36) g/dL RDW 13.3 (11.5-14.0) % Plt Count 111 L (150-450) x10^3/uL MPV 8.8 (7.5-11.0) fL Gran % 69.2 H (36.0-66.0) % Immature Gran % (Auto) 0.5 H (0.00-0.4) % Nucleat RBC Rel Count 0.0 (0.00-0.1) % Eos # (Auto) 0.11 (0-0.5) x10^3/uL Immature Gran # (Auto) 0.03 (0.00-0.03) x10^3u/L Absolute Lymphs (auto) 1.41 (1.0-4.6) x10^3/uL Absolute Monos (auto) 0.46 (0.0-1.3) x10^3/uL Absolute Nucleated RBC 0.00 (0.00-0.01) x10^3u/L Lymphocytes % 21.2 L (24.0-44.0) % Monocytes % 6.9 (0.0-12.0) % Eosinophils % 1.7 (0.00-5.0) % Basophils % 0.5 (0.0-0.4) % Absolute Granulocytes 4.60 (1.4-6.9) x10^3/uL Basophils # 0.03 (0-0.4) x10^3/uL Sodium 137 (137-145) mmol/L Potassium 4.6 (3.5-5.1) mmol/L Chloride 100 (98-107) mmol/L Carbon Dioxide 25 (22-30) mmol/L Anion Gap 15.8 H (5-15) MEQ/L BUN 15 (7-17) mg/dL Creatinine 0.57 (0.52-1.04) mg/dL Estimated GFR > 60.0 ML/MIN Glucose 167 H (74-106) mg/dL Calcium 10.1 (8.4-10.2) mg/dL Total Bilirubin 0.50 (0.2-1.3) mg/dL AST 33 (14-36) U/L ALT 24 (0-35) U/L Alkaline Phosphatase 112 (38-126) U/L Troponin I (0.000-0.034) ng/mL NT-Pro-B Natriuret Pep 25.9 (0-900) pg/mL Serum Total Protein 7.7 (6.3-8.2) g/dL Albumin 4.5 (3.5-5.0) g/dL Urinalys Dipstick Clnc Urine Color (YELLOW) Urine Appearance (CLEAR) Urine pH (5-6) Ur Specific Blum (1.005-1.025) POC Urine Protein Conf (Negative) Urine Ketones (NEGATIVE) Urine Nitrite (NEGATIVE) Urine Bilirubin (NEGATIVE) Urine Urobilinogen (0-1) mg/dL Urine Leukocytes (NEGATIVE) Urine WBC (Auto) (0-5) /HPF Urine RBC (Auto) (0-2) /HPF U Epithel Cells (Auto) (FEW) /HPF Urine Bacteria (Auto) (NEGATIVE) /HPF Urine RBC (0-5) Rao/ul Ur Culture Indicated? Urine Glucose (NEGATIVE) mg/dL Monoscreen NEGATIVE (Negative) Influenza Type A Ag (NEGATIVE) Influenza Type B Ag (NEGATIVE) RSV (PCR) (Negative) SARS-CoV-2 (PCR) (NEGATIVE) - Progress Progress: improved Air Movement: good Progress Note: 05/30/22 15:11 CT scan of the head without contrast is a normal study with no evidence of any intracranial abnormality. Blood Culture(s) Obtained: No Antibiotics given: No Counseled pt/family regarding: lab results, diagnosis, need for follow-up, rad results - Departure Departure Disposition: Home Clinical Impression: Subconjunctival hemorrhage, Hypertension Condition: Stable Critical Care Time: No Referrals: ANGELA LESTER [Primary Care Provider] - Follow up/PCP as directed Additional Instructions: Continue your medication as prescribed. The subconjunctival hemorrhage will resolve within the next couple of weeks. Call your primary prescribing provider tomorrow to make arranges for follow-up appointment.
[2022-05-30 12:44] LABS: Basophil (Absolute #) 0.03 x10^3/uL (0-0.4); Eosinophil % 1.7 % (0.00-5.0); Eosinophil (Absolute #) 0.11 x10^3/uL (0-0.5); Hematocrit 38.9 % (35-47); Hemoglobin 13.1 g/dL (12.0-16.0); Lymphocyte (Absolute #) 1.41 x10^3/uL (1.0-4.6); Lymphocytes % 21.2 % (24.0-44.0); Mean Cell Volume 93.5 fL (78-100); Mean Corpuscular Hemoglobin 31.5 pg (26-32); Mean Corpuscular Hgb Concent. 33.7 g/dL (32-36); Mean Platelet Volume 8.8 fL (7.5-11.0); Monocyte (Absolute #) 0.46 x10^3/uL (0.0-1.3); Monocytes % 6.9 % (0.0-12.0); Neutrophil % 69.2 % (36.0-66.0); Platelet Count 111 x10^3/uL (150-450); Red Blood Count 4.16 x10^6/uL (4.1-5.4); Red Cell Distribution Width 13.3 % (11.5-14.0); White Blood Count 6.6 x10^3/uL (4.0-10.5)
[2022-05-30 13:05] LABS: ALBUMIN 4.5 g/dL (3.5-5.0); ALKALINE PHOSPHATASE 112 U/L (38-126); ANION GAP 15.8 MEQ/L (5-15); BLOOD UREA NITROGEN 15 mg/dL (7-17); CHLORIDE 100 mmol/L (98-107); Calcium 10.1 mg/dL (8.4-10.2); Carbon Dioxide 25 mmol/L (22-30); Creatinine 1 0.57 mg/dL (0.52-1.04); EST GLOMERULAR FILTRATION RATE > 60.0 ML/MIN; Glucose 167 mg/dL (74-106); NT PRO BNP 25.9 pg/mL (0-900); Potassium 4.6 mmol/L (3.5-5.1); SGOT/AST 33 U/L (14-36); SGPT/ALT 24 U/L (0-35); SODIUM 137 mmol/L (137-145); Total Protein 7.7 g/dL (6.3-8.2)
[2022-05-30 13:24] LABS: INFLUENZA A NEGATIVE (NEGATIVE); INFLUENZA B NEGATIVE (NEGATIVE); RESPIRATORY SYNCTIAL VIRUS NEGATIVE (Negative); SARS-CoV-2 Xpert Express NEGATIVE (NEGATIVE)
[2022-05-30 14:04] VITALS: O2SAT 97
[2022-05-30 14:07] LABS: Appearance CLEAR (CLEAR); Bilirubin NEGATIVE (NEGATIVE); Dipstick done @ ? MAIN LAB; Glucose NEGATIVE (NEGATIVE); Ketones NEGATIVE (NEGATIVE); Nitrite NEGATIVE (NEGATIVE); Protein,Urine Dip NEGATIVE (Negative); RBC NEGATIVE Ery/ul (0-5); Specific Gravity 1.025 (1.005-1.025); Urobilinogen 0.2 mg/dL (0-1)
[2022-05-30 14:09] LABS: RBC 0-2 /HPF (0-2)
[2022-05-30 14:12] LABS: Urine Cultured Indicated? NO
[2022-05-30 15:06] VITALS: BP 152/80
[2022-05-30 15:30] VITALS: PULSE 80
--- NOTE | 2022-05-31 16:40 | XRAY ---
Indication: Headache. No known injury. Multiple contiguous axial images obtained through the head without contrast. Comparison: None Normal appearing brain parenchyma, ventricles, and bony calvarium. Visualized paranasal sinuses and mastoid air cells are clear. Impression: Normal CT head without contrast exam.
== END 2022-05-30 15:31 | disposition home or self-care (01) ==
LOC: ED 11:10 → MERGE 11:10 → ED 15:31
DX: H11.32 Conjunctival hemorrhage, left eye (principal); I10 Essential (primary) hypertension; R51.9 Headache, unspecified; M79.10 Myalgia, unspecified site; E11.9 Type 2 diabetes mellitus without complications; E78.5 Hyperlipidemia, unspecified; Z79.84 Long term (current) use of oral hypoglycemic drugs; Z79.899 Other long term (current) drug therapy; Z20.828 Contact with and (suspected) exposure to other viral communicable diseases
CPT/HCPCS: 0241U; 36415; 70450; 80053; 81015; 83880; 84484; 85025; 86308; 93005; 99283

== ENCOUNTER 2022-06-24 16:34 | Emergency (ER) | payer MEDICARE ==
[2022-06-24 16:53] VITALS: BP 158/69; PULSE 94; O2SAT 96
[2022-06-24] MEDS ORDERED: TORAdol 30 mg Injection IM ONE (17:11)
[2022-06-24] MEDS ORDERED: TORAdol 30 mg Injection ONE (17:13)
--- NOTE | 2022-06-24 17:17 | ERPHSYRPT ---
- History of Present Illness Source: patient Exam Limitations: no limitations Patient Subjective Stated Complaint: Fell in her house approx 1 hour ago and hurt her right lower leg. Triage Nursing Assessment: Patient brought back to ED in a W/C. She is alert and oriented. No SOB. Bruising noted to right lower anterior leg with a small, superficial scratch. No active bleeding. Leg is swollen. Physician History: 66 yo wf tripped and fell in her house injuring her R pre-tibial area. Pt states that pain is 8/10 and worse w movement. She denies other injuries at this time. Method of Injury: fell Occurred: just prior to arrival Quality: constant Severity of Pain-Max: severe Severity of Pain-Current: severe Lower Extremities Pain: leg: right Modifying Factors: Improves With: movement Associated Symptoms: none Allergies/Adverse Reactions: No Known Drug Allergies Allergy (Verified 06/24/22 16:41) Home Medications: Levothyroxine Sodium 75 Mcg [Synthroid 75 Mcg] 100 mcg PO DAILY 11/07/13 [History] Venlafaxine HCl [Effexor] 150 mg PO DAILY 11/07/13 [History] Pravastatin Sodium 20 mg PO HS 11/08/13 [History] Calcium Citrate/Vitamin D3 [Calcium Citrate - Vit D Caplet] 1 each PO DAILY 10/01/15 [History] Cyanocobalamin (Vitamin B-12) [Vitamin B12] 500 mcg PO DAILY 10/01/15 [History] Metformin HCl 500 mg [Glucophage 500 MG] 500 tablet PO BID 12/04/15 [History] Ropinirole HCl 0.5 mg [Requip 0.5 MG] 2 mg PO BID 07/10/18 [History] Docusate Sodium [Stool Softener] 100 mg PO DAILY 06/07/21 [History] Ferrous Sulfate [Iron] 325 mg DAILY 06/07/21 [History] Glimepiride 2 mg [Amaryl 2 MG] 2 mg PO DAILY 06/07/21 [History] Magnesium Oxide 400 mg [Mag-Ox 400] 400 mg PO HS 06/07/21 [History] Melatonin 20 mg PO HS 06/07/21 [History] Valsartan 160 mg PO DAILY 06/07/21 [History] Vit A/Vit C/Vit E/Zinc/Copper [Preservision Areds Tablet] 1 each PO BID 06/07/21 [History] Calcium Carbonate 750 mg [Tums EX 750 MG] 1 tab PO Q4-6HPRN PRN 12/20/21 [History] Glimepiride 2 mg [Amaryl 2 MG] 2 mg PO DAILY 05/30/22 [History] Levothyroxine Sodium 1 ea DAILY 05/30/22 [History] Metformin HCl 500 mg [Glucophage 500 MG] 500 mg PO BIDWM 05/30/22 [History] Pravastatin Sodium 20 mg PO DAILY 05/30/22 [History] Ropinirole 2Mg [Requip 2Mg Tab] 1 ea DAILY 05/30/22 [History] Semaglutide [Ozempic] 1 mg SQ UD 05/30/22 [History] Trazodone HCl 50 mg [Desyrel 50 mg] 50 mg PO DAILY 05/30/22 [History] Valsartan 20 mg PO DAILY 05/30/22 [History] Venlafaxine HCl ER 75 mg [Effexor XR 75 MG] 75 mg PO DAILY 05/30/22 [History] Hx Tetanus, Diphtheria Vaccination/Date Given: Yes Hx Influenza Vaccination/Date Given: Yes Hx Pneumococcal Vaccination/Date Given: Yes Immunizations Up to Date: Yes Travel Risk - International Travel Have you traveled outside of the country in past 3 weeks: No - Coronavirus Screening Are you exhibiting any of the following symptoms?: No Close contact with a COVID-19 positive Pt in past 14-21 Days: No - Vaccine Status Have you recieved a Covid-19 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: 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 - Vaccination Dates Date of 2cond Vaccination (if applicable): 2020 - Review of Systems Constitutional: No Symptoms Eyes: No Symptoms Ears, Nose, & Throat: No Symptoms Respiratory: No Symptoms Cardiac: No Symptoms Abdominal/Gastrointestinal: No Symptoms Genitourinary Symptoms: No Symptoms Musculoskeletal: Fall, No Back Pain, No Neck Pain, No Deformity, No Injury, No Joint Redness, No Joint Pain, No Joint Swelling, No Myalgias Skin: No Symptoms Neurological: No Symptoms Psychological: No Symptoms Endocrine: No Symptoms Hematologic/Lymphatic: No Symptoms Immunological/Allergic: No Symptoms - Past Medical History Pertinent Past Medical History: Yes Neurological History: No Pertinent History ENT History: Cataracts Cardiac History: High Cholesterol, Hypertension Respiratory History: Other Endocrine Medical History: Diabetes Type II, Hypothyroidism Musculoskeletal History: Osteoarthritis GI Medical History: Polyps, GERD History: No Pertinent History Psycho-Social History: Anxiety Female Reproductive Disorders: No Pertinent History Other Medical History: HX OF COVID - Past Surgical History Past Surgical History: Yes Neuro Surgical History: No Pertinent History Cardiac: No Pertinent History Respiratory: No Pertinent History Gastrointestinal: No Pertinent History Genitourinary: No Pertinent History Musculoskeletal: No Pertinent History Female Surgical History: Dilation & Curettage Other Surgical History: colonoscopy - Social History Smoking Status: Never smoker Exposure to second hand smoke: No Drug Use: none Patient Lives Alone: No Significant Family History: no pertinent family hx - Nursing Vital Signs Nursing Vital Signs: Initial Vital Signs Temperature 97.7 F 06/24/22 16:43 Pulse Rate 94 H 06/24/22 16:43 Respiratory Rate 17 06/24/22 16:43 Blood Pressure 158/69 06/24/22 16:43 O2 Sat by Pulse Oximetry 96 06/24/22 16:43 Pain Scale Pain Intensity 6 Hypertensive - Physical Exam General Appearance: no apparent distress Eyes, Ears, Nose, Throat Exam: normal ENT inspection, TMs normal, pharynx normal, moist mucous membranes Neck Exam: normal inspection, non-tender (C-spine NTTP), supple, full range of motion, No Brudzinski, No Kernig's, No meningismus Cardiovascular/Respiratory Exam: chest non-tender, normal breath sounds, regular rate/rhythm, heart sounds normal Gastrointestinal/Abdominal Exam: non-tender, soft, no organomegaly Back Exam: normal inspection, normal range of motion, vertebral tenderness (No T or L-spine TTP), No CVA tenderness Hips Exam: bilateral: non-tender, normal inspection, normal range of motion, no evidence of injury Legs Exam: right leg: swelling (Mild R pre-tibial edema/moderate TTP/small abrasion/Good pedal pulse, distal sensation, and capillary return) Knees Exam: bilateral knee: non-tender, normal inspection, normal range of motion, no evidence of injury Ankle Exam: bilateral ankle: non-tender, normal inspection, normal range of motion, no evidence of injury Foot Exam: bilateral foot: non-tender, normal inspection, normal range of motion, no evidence of injury Neuro/Tendon Exam: normal sensation, normal motor functions, normal tendon functions, responds to pain, no evidence tendon injury, No motor deficit, No sensory deficit Mental Status Exam: alert, 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, cooperative Skin Exam: normal color, warm, dry SpO2 Interpretation: normal SpO2: 96 O2 Delivery: Room Air - Course Nursing assessment & vital signs reviewed: Yes - Radiology Exams Lower Leg X-ray Interpretation: Interpreted by me (R tib-fib neg per ER read) Ordered Tests: Active Orders 24 hr Category Date Time Status LOWER LEG Stat Exams 06/24/22 16:59 Completed Medication Summary Discontinued Medications Generic Name Dose Route Start Last Admin Trade Name Wayne PRN Reason Stop Dose Admin Ketorolac Tromethamine 30 mg 06/24/22 17:11 06/24/22 17:14 Ketorolac Tromethamine 30 Mg/Ml Inj IM 06/24/22 17:12 30 mg STAT ONE Administration Ketorolac Tromethamine Confirm 06/24/22 17:13 Ketorolac Tromethamine 30 Mg/Ml Inj Administered 06/24/22 17:14 Dose 30 mg .ROUTE .STK-MED ONE - Progress Progress: improved Progress Note: 06/24/22 17:17 30mg IM Toradol 06/24/22 17:20 Pt refuses TDAP Counseled pt/family regarding: diagnosis, need for follow-up, rad results - Departure Departure Disposition: Home Clinical Impression: Contusion of lower leg, right Condition: Stable Critical Care Time: No Referrals: ANGELA LESTER [Primary Care Provider] - Follow up/PCP as directed Instructions: Contusion (DC) Additional Instructions: Ice for 12-24 hours Weight bearing as tolerated Wash abrasion twice a day with soap/water Watch for signs of infection-Increasing redness/Increasing pain/Pus/Temperature greater than 100.5 Toradol as needed for pain Prescriptions: Ketorolac Trometh 10 mg Tab [TORAdol 10 MG TABLET] 10 mg PO TIDPRN PRN #10 tablet PRN Reason: Pain
--- NOTE | 2022-06-24 21:47 | XRAY ---
Indication: Pain and swelling following fall. Comparison: None 2 portable views right lower leg obtained. No bony, articular, or soft tissue abnormalities.
== END 2022-06-24 17:35 | disposition home or self-care (01) ==
LOC: ED 16:34
DX: S80.11XA Contusion of right lower leg, initial encounter (principal); W01.0XXA Fall on same level from slipping, tripping and stumbling without subsequent striking against object, initial encounter; M79.661 Pain in right lower leg; E78.5 Hyperlipidemia, unspecified; I10 Essential (primary) hypertension; E11.9 Type 2 diabetes mellitus without complications; Z79.84 Long term (current) use of oral hypoglycemic drugs; Z79.899 Other long term (current) drug therapy; Z86.16 Personal history of COVID-19
CPT/HCPCS: 73590; 96372; 99283; J1885

== ENCOUNTER 2023-06-11 10:27 | Emergency (ER) | payer MEDICARE ==
--- NOTE | 2023-06-11 10:36 | ERPHSYRPT ---
- History of Present Illness Time Seen by Provider: 06/11/23 10:36 Source: patient Exam Limitations: no limitations Physician History: This is a right-handed 67-year-old white female who presents to the emergency department with right shoulder pain that was sudden in onset while the patient was lifting [place] a window [place]. Patient did not fall. She is never had surgery in that right elbow. Patient denies chest pain. She denies numbness. She denies shortness of breath. Patient has a history of hypertension, hypothyroidism, diabetes and hyperlipidemia. Occurred: just prior to arrival Method of Injury: other Quality: constant, aching Severity of Pain-Max: mild (To moderate) Severity of Pain-Current: mild (To moderate) Extremities Pain Location: shoulder: right (Patient can move her right shoulder but hurts to do so) Modifying Factors: Improves With: movement Associated Symptoms: none Allergies/Adverse Reactions: No Known Drug Allergies Allergy (Verified 06/11/23 10:36) Home Medications: Levothyroxine Sodium 75 Mcg [Synthroid 75 Mcg] 100 mcg PO DAILY 11/07/13 [History] Venlafaxine HCl [Effexor] 150 mg PO DAILY 11/07/13 [History] Calcium Citrate/Vitamin D3 [Calcium Citrate - Vit D Caplet] 1 each PO DAILY 10/01/15 [History] Cyanocobalamin (Vitamin B-12) [Vitamin B12] 500 mcg PO DAILY 10/01/15 [History] Metformin HCl 500 mg [Glucophage 500 MG] 500 tablet PO BID 12/04/15 [Histo ry] Ropinirole HCl 0.5 mg [Requip 0.5 MG] 2 mg PO BID 07/10/18 [History] Docusate Sodium [Stool Softener] 100 mg PO DAILY 06/07/21 [History] Ferrous Sulfate [Iron] 325 mg DAILY 06/07/21 [History] Glimepiride 2 mg [Amaryl 2 MG] 2 mg PO DAILY 06/07/21 [History] Magnesium Oxide 400 mg [Mag-Ox 400] 400 mg PO HS 06/07/21 [History] Melatonin 10 mg PO HS 06/07/21 [History] Valsartan 160 mg PO DAILY 06/07/21 [History] Calcium Carbonate 750 mg [Tums EX 750 MG] 1 tab PO Q4-6HPRN PRN 12/20/21 [History] Pravastatin Sodium 40 mg PO DAILY 05/30/22 [History] Venlafaxine HCl ER 75 mg [Effexor XR 75 MG] 75 mg PO DAILY 05/30/22 [History] Hx Tetanus, Diphtheria Vaccination/Date Given: Yes Hx Influenza Vaccination/Date Given: Yes Hx Pneumococcal Vaccination/Date Given: Yes Travel Risk - International Travel Have you traveled outside of the country in past 3 weeks: No - Coronavirus Screening Are you exhibiting any of the following symptoms?: No Close contact with a COVID-19 positive Pt in past 14-21 Days: No - Vaccine Status Have you recieved a Covid-19 vaccination: 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 - Vaccination Dates Date of 2cond Vaccination (if applicable): 2020 - Review of Systems Constitutional: No Symptoms Eyes: No Symptoms Ears, Nose, & Throat: No Symptoms Respiratory: No Symptoms Cardiac: No Symptoms Abdominal/Gastrointestinal: No Symptoms Genitourinary Symptoms: No Symptoms Musculoskeletal: Injury (Right shoulder) Skin: No Symptoms Neurological: No Symptoms Psychological: No Symptoms Endocrine: No Symptoms Hematologic/Lymphatic: No Symptoms Immunological/Allergic: No Symptoms All Other Systems: Reviewed and Negative - Past Medical History Pertinent Past Medical History: Yes Neurological History: No Pertinent History ENT History: Cataracts Cardiac History: High Cholesterol, Hypertension Respiratory History: Other Endocrine Medical History: Diabetes Type II, Hypothyroidism Musculoskeletal History: Osteoarthritis GI Medical History: Polyps, GERD History: No Pertinent History Psycho-Social History: Anxiety Female Reproductive Disorders: No Pertinent History Other Medical History: HX OF COVID - Past Surgical History Past Surgical History: Yes Neuro Surgical History: No Pertinent History Cardiac: No Pertinent History Respiratory: No Pertinent History Gastrointestinal: No Pertinent History Genitourinary: No Pertinent History Musculoskeletal: No Pertinent History Female Surgical History: Dilation & Curettage Other Surgical History: colonoscopy - Social History Smoking Status: Never smoker Exposure to second hand smoke: No Drug Use: none Patient Lives Alone: No Significant Family History: no pertinent family hx - Nursing Vital Signs Nursing Vital Signs: Initial Vital Signs Temperature 97.9 F 06/11/23 10:36 Pulse Rate 84 06/11/23 10:36 Respiratory Rate 18 06/11/23 10:36 Blood Pressure 125/55 06/11/23 10:36 O2 Sat by Pulse Oximetry 96 06/11/23 10:36 Pain Scale Pain Intensity 8 - Physical Exam General Appearance: no apparent distress, alert, anxiety Eyes, Ears, Nose, Throat Exam: normal ENT inspection, moist mucous membranes Neck Exam: normal inspection, non-tender, supple, full range of motion Cardiovascular/Respiratory Exam: chest non-tender, no respiratory distress Abdominal Exam: non-tender Back Exam: normal inspection, normal range of motion, No CVA tenderness, No vertebral tenderness Shoulder Exam: normal inspection, non-tender, no evidence of injury, normal ROM, soft tissue tenderness Elbow/Forearm Exam: normal inspection, non-tender, no evidence of injury, normal ROM Wrist Exam: normal inspection, non-tender, no evidence of injury, normal ROM Hand Exam: normal inspection, non-tender, no evidence of injury, normal ROM Neuro/Tendon Exam: normal sensation, normal motor functions, normal tendon functions, responds to pain Mental Status Exam: alert, 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, cooperative Skin Exam: normal color, warm, dry SpO2 Interpretation: normal O2 Delivery: Room Air - Course Nursing assessment & vital signs reviewed: Yes Ordered Tests: Active Orders 24 hr Category Date Time Status SHOULDER Stat Exams 06/11/23 10:35 Taken - Progress Progress: unchanged Progress Note: 06/11/23 11:09 This patient's medical issue is 1 of low complexity. Level complexity in the work-up performed is based on review of the patient's past medical history, review of the patient's medication list, review the patient's drug allergy list, history of present illness and physical findings on examination. The work-up includes x-ray of the patient's right shoulder. 06/11/23 11:11 I interpreted the x-ray of the patient's right shoulder. I do not appreciate any fracture or dislocation. Counseled pt/family regarding: diagnosis, need for follow-up, rad results Medical Desision Making - Diagnostic Testing Diagnostic test were ordered, analyzed, and reviewed by me: Yes Radiological Interpretation: Interpreted by me, Teleradiologist Report - Risk of complications The pt has a mod risk of morbidity or mortality based on: Need for prescription drug management - Departure Departure Disposition: Home Clinical Impression: Right shoulder strain Condition: Stable Critical Care Time: No Referrals: ANGELA LESTER [Primary Care Provider] - Follow up/PCP as directed Additional Instructions: Wear sling for comfort sake. Take your medication as prescribed. Follow-up with your primary care provider on 06/12/2023, for further evaluation management. You may also follow-up with [facility] orthopedic clinic, Monday through Monday, 8 AM to 10 AM for further evaluation and management. This is a walk-in clinic and you do not need an appointment. Monitor your blood sugar closely while taking the short term steroid therapy Prescriptions: Prednisone 10 mg [Deltasone 10 mg] 10 mg PO TID #12 tablet Orphenadrine Citrate 100 mg [Norflex 100 MG Tablet] 100 mg PO BID #10 tab
[2023-06-11 10:42] VITALS: BP 125/55; PULSE 84; RESP 18; TEMP 97.9; O2SAT 96
--- NOTE | 2023-06-11 19:32 | XRAY ---
Indication: Pain. Comparison: None 3 view right shoulder demonstrates osteopenia, mild glenohumeral/moderate acromioclavicular degenerative arthropathy, and mild degenerative changes visualized spine. No other bony, articular, or soft tissue abnormalities.
== END 2023-06-11 11:38 | disposition home or self-care (01) ==
LOC: ED 10:27
DX: S46.911A Strain of unspecified muscle, fascia and tendon at shoulder and upper arm level, right arm, initial encounter (principal); X50.0XXA Overexertion from strenuous movement or load, initial encounter; Y92.22 Religious institution as the place of occurrence of the external cause; I10 Essential (primary) hypertension; E11.9 Type 2 diabetes mellitus without complications; E78.5 Hyperlipidemia, unspecified; Z79.84 Long term (current) use of oral hypoglycemic drugs; Z79.899 Other long term (current) drug therapy; Z86.16 Personal history of COVID-19
CPT/HCPCS: 73030; 99282

== ENCOUNTER 2024-01-03 11:37 | Emergency (ER) | payer MEDICARE ==
--- NOTE | 2024-01-03 11:47 | ERPHSYRPT ---
- History of Present Illness Time Seen by Provider: 01/03/24 11:47 Historian: patient, family Exam Limitations: no limitations Physician History: This is a 68-year-old white female patient of Dr. Wilson who is a diabetic and was in [place] for a few days. Patient has had diarrhea that started in [place] 2 days before the left to travel home. Patient then drove home with family and arrived home 2 days ago. Since that time she has had 2 more days of intermittent bouts of diarrhea without complaints of abdominal pain. She has nausea without vomiting. She has not had a fever. She states no one else that she was with or in the family have similar symptoms. Patient does not drink well water. Patient has not been drinking out of canals or streams. Patient has a history of hypertension, hypothyroidism, hyperlipidemia and anxiety. Timing/Duration: day(s) (4) Activities at Onset: none Quality: cramping Abdominal Pain Onset Location: generalized abdomen Pain Radiation: no radiation Severity of Pain-Max: none Severity of Pain-Current: none Modifying Factors: Improves With: other (Nausea and diarrhea) Associated Symptoms: diarrhea, loss of appetite, nausea, weakness Previous symptoms: no prior history, no recent treatment Allergies/Adverse Reactions: No Known Drug Allergies Allergy (Verified 01/03/24 11:49) Home Medications: Levothyroxine Sodium 75 Mcg [Synthroid 75 Mcg] 100 mcg PO DAILY 11/07/13 [History] Venlafaxine HCl [Effexor] 150 mg PO DAILY 11/07/13 [History] Calcium Citrate/Vitamin D3 [Calcium Citrate - Vit D Caplet] 1 each PO DAILY 10/01/15 [History] Cyanocobalamin (Vitamin B-12) [Vitamin B12] 500 mcg PO DAILY 10/01/15 [History] Metformin HCl 500 mg [Glucophage 500 MG] 500 tablet PO BID 12/04/15 [History] Ropinirole HCl 0.5 mg [Requip 0.5 MG] 2 mg PO BID 07/10/18 [History] Docusate Sodium [Stool Softener] 100 mg PO DAILY 06/07/21 [History] Ferrous Sulfate [Iron] 325 mg DAILY 06/07/21 [History] Glimepiride 2 mg [Amaryl 2 MG] 2 mg PO DAILY 06/07/21 [History] Magnesium Oxide 400 mg [Mag-Ox 400] 400 mg PO HS 06/07/21 [History] Melatonin 10 mg PO HS 06/07/21 [History] Valsartan 160 mg PO DAILY 06/07/21 [History] Calcium Carbonate 750 mg [Tums EX 750 MG] 1 tab PO Q4-6HPRN PRN 12/20/21 [History] Pravastatin Sodium 40 mg PO DAILY 05/30/22 [History] Venlafaxine HCl ER 75 mg [Effexor XR 75 MG] 75 mg PO DAILY 05/30/22 [History] Hx Tetanus, Diphtheria Vaccination/Date Given: Yes Hx Influenza Vaccination/Date Given: Yes Hx Pneumococcal Vaccination/Date Given: Yes Travel Risk - International Travel Have you traveled outside of the country in past 3 weeks: No - Emerging Infectious Disease Are you exhibiting symptoms associated with any current EIDs: Yes Symptoms: Diarrhea - Coronavirus Screening Are you exhibiting any of the following symptoms?: Yes Symptoms: Vomiting/Diarrhea Close contact with a COVID-19 positive Pt in past 14-21 Days: No - Vaccine Status Have you recieved a Covid-19 vaccination: Yes Sales Estimator: Moderna - Vaccination Dates Date of 2cond Vaccination (if applicable): 2020 - Review of Systems Constitutional: Weakness Eyes: No Symptoms Ears, Nose, & Throat: No Symptoms Respiratory: No Symptoms Cardiac: No Symptoms Abdominal/Gastrointestinal: Nausea, Diarrhea, Appetite Changes Genitourinary Symptoms: No Symptoms Musculoskeletal: No Symptoms Skin: No Symptoms Neurological: No Symptoms Psychological: No Symptoms Endocrine: No Symptoms Hematologic/Lymphatic: No Symptoms Immunological/Allergic: No Symptoms All Other Systems: Reviewed and Negative - Past Medical History Pertinent Past Medical History: Yes Neurological History: No Pertinent History ENT History: Cataracts Cardiac History: High Cholesterol, Hypertension Respiratory History: Other Endocrine Medical History: Diabetes Type II, Hypothyroidism Musculoskeletal History: Osteoarthritis GI Medical History: Polyps, GERD History: No Pertinent History Psycho-Social History: Anxiety Female Reproductive Disorders: No Pertinent History Other Medical History: HX OF COVID - Past Surgical History Past Surgical History: Yes Neuro Surgical History: No Pertinent History Cardiac: No Pertinent History Respiratory: No Pertinent History Gastrointestinal: No Pertinent History Genitourinary: No Pertinent History Musculoskeletal: No Pertinent History Female Surgical History: Dilation & Curettage Other Surgical History: colonoscopy Significant Family History: no pertinent family hx - Social History Smoking Status: Never smoker Exposure to second hand smoke: No Drug Use: none Patient Lives Alone: No - Nursing Vital Signs Nursing Vital Signs: Initial Vital Signs Temperature 98.1 F 01/03/24 11:38 Pulse Rate 127 H 01/03/24 11:38 Respiratory Rate 18 01/03/24 11:38 Blood Pressure 143/71 01/03/24 11:38 O2 Sat by Pulse Oximetry 97 01/03/24 11:38 Pain Scale Pain Intensity 0 - Physical Exam General Appearance: no apparent distress, alert, anxiety Eye Exam: PERRL/EOMI, eyes nml inspection Ears, Nose, Throat Exam: normal ENT inspection, moist mucous membranes Neck Exam: normal inspection, non-tender, supple, full range of motion Respiratory Exam: normal breath sounds, lungs clear, airway intact, No chest tenderness, No respiratory distress Cardiovascular Exam: regular rate/rhythm, normal heart sounds, normal peripheral pulses Gastrointestinal/Abdomen Exam: soft, other (Very active bowel sounds), No tenderness Pelvic Exam: No not done Rectal Exam: not done Back Exam: normal inspection, normal range of motion, No CVA tenderness, No vertebral tenderness Extremity Exam: normal inspection, normal range of motion, pelvis stable Neurologic Exam: alert, 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, cooperative, national accounts sales II-XII nml as tested, normal mood/affect, nml cerebellar function, nml station & gait, sensation nml Skin Exam: normal color, warm, dry Lymphatic Exam: No adenopathy SpO2 Interpretation: normal O2 Delivery: Room Air - Course Nursing assessment & vital signs reviewed: Yes EKG Interpreted by Me: RATE ([id number]), Sinus Tach, NORMAL AXIS, NORMAL INTERVALS, NORMAL QRS, NORMAL ST-T, Other (No acute ischemia on today's twelve-lead EKG.) Ordered Tests: Active Orders 24 hr Category Date Time Status IV Insertion STAT Care 01/03/24 11:47 Completed ABDOMEN AND PELVIS W/0 CONTRAS [CT] Stat Exams 01/03/24 12:07 Completed AMYLASE Stat Lab 01/03/24 12:15 Completed CBC W DIFF Stat Lab 01/03/24 12:15 Completed CMP Stat Lab 01/03/24 12:15 Completed LIPASE Stat Lab 01/03/24 12:15 Completed Lactic Acid Stat Lab 01/03/24 11:47 Completed Lactic Acid Stat Lab 01/03/24 14:15 Completed MAGNESIUM Stat Lab 01/03/24 12:15 Completed MONO SCREEN Stat Lab 01/03/24 12:15 Completed UA W/RFX UR CULTURE Stat Lab 01/03/24 11:48 Completed Medication Summary Discontinued Medications Generic Name Dose Route Start Last Admin Trade Name Wayne PRN Reason Stop Dose Admin Sodium Chloride 1,000 mls @ 999 mls/hr 01/03/24 11:47 01/03/24 13:16 Sodium Chloride 0.9% 1000 Ml IV 01/03/24 12:47 Infused .Q1H1M STA Infusion Sodium Chloride Confirm 01/03/24 12:10 Sodium Chloride 0.9% 1000 Ml Administered 01/03/24 12:11 Dose 1,000 mls @ ud .ROUTE .STK-MED ONE Magnesium Sulfate/Water 2 gm in 50 mls @ 100 mls/hr 01/03/24 14:39 01/03/24 15:00 Magnesium Sulf 2 G/50 Ml Bag IV 01/03/24 15:08 Not Given ONCE ONE Sodium Chloride 1,000 mls @ 999 mls/hr 01/03/24 14:39 01/03/24 16:00 Sodium Chloride 0.9% 1000 Ml IV 01/03/24 15:39 Infused .Q1H1M STA Infusion Magnesium Sulfate/Dextrose Confirm 01/03/24 14:49 Magnesium 1 Gm / 100 Ml D5w Administered 01/03/24 14:50 Dose 200 mls @ ud IV .STK-MED ONE Sodium Chloride Confirm 01/03/24 14:49 Sodium Chloride 0.9% 1000 Ml Administered 01/03/24 14:50 Dose 1,000 mls @ ud .ROUTE .STK-MED ONE Magnesium Sulfate/Dextrose 100 mls @ 100 mls/hr 01/03/24 15:00 01/03/24 15:43 Magnesium 1 Gm / 100 Ml D5w IV 01/03/24 16:59 100 mls/hr Q1H JAYDA Administration Ondansetron HCl 4 mg 01/03/24 12:07 01/03/24 12:16 Ondansetron Hcl 4 Mg/2 Ml Vial IV 01/03/24 12:08 4 mg STAT ONE Administration Ondansetron HCl Confirm 01/03/24 12:09 Ondansetron Hcl 4 Mg/2 Ml Vial Administered 01/03/24 12:10 Dose 4 mg .ROUTE .[facility]-MED ONE Lab/Rad Data: Laboratory Result Diagrams 01/03/24 12:15 01/03/24 12:15 Laboratory Results 01/03/24 01/03/24 01/03/24 Range/Units 14:15 12:45 12:15 WBC (4.0-10.5) x10^3/uL RBC (4.1-5.4) x10^6/uL Hgb (12.0-16.0) g/dL Hct (35-47) % MCV (78-100) fL MCH (26-32) pg MCHC (32-36) g/dL RDW (11.5-14.0) % Plt Count (150-450) x10^3/uL MPV (7.5-11.0) fL Gran % (36.0-66.0) % Immature Gran % (Auto) (0.00-0.4) % Nucleat RBC Rel Count (0.00-0.1) % Eos # (Auto) (0-0.5) x10^3/uL Immature Gran # (Auto) (0.00-0.03) x10^3u/L Absolute Lymphs (auto) (1.0-4.6) x10^3/uL Absolute Monos (auto) (0.0-1.3) x10^3/uL Absolute Nucleated RBC (0.00-0.01) x10^3u/L Lymphocytes % (24.0-44.0) % Monocytes % (0.0-12.0) % Eosinophils % (0.00-5.0) % Basophils % (0.0-0.4) % Absolute Granulocytes (1.4-6.9) x10^3/uL Basophils # (0-0.4) x10^3/uL Sodium (135-145) mmol/L Potassium (3.5-5.1) mmol/L Chloride (98-107) mmol/L Carbon Dioxide (22-30) mmol/L Anion Gap (5-15) MEQ/L BUN (7-17) mg/dL Creatinine (0.52-1.04) mg/dL Estimated GFR ML/MIN Glucose (74-106) mg/dL Lactic Acid 2.6 H (0.4-2.0) Calcium (8.4-10.2) mg/dL Magnesium (1.6-2.3) mg/dL Total Bilirubin (0.2-1.3) mg/dL AST (14-36) U/L ALT (0-35) U/L Alkaline Phosphatase (38-126) U/L Serum Total Protein (6.3-8.2) g/dL Albumin (3.5-5.0) g/dL Amylase (30-110) U/L Lipase (23-300) U/L Urine Color (Yellow) Urine Appearance (Clear) Urine pH (4.6-8.0) Ur Specific Boyd (1.005-1.030) Urine Protein (Negative) Urine Glucose (UA) (Negative) mg/dL Urine Ketones (Negative) Urine Blood (Negative) Urine Nitrite (Negative) Urine Bilirubin (Negative) Urine Urobilinogen (0.2) mg/dL Ur Leukocyte Esterase (Negative) U Hyaline Cast (Auto) (0-2) /LPF Urine Microscopic RBC (0-5) /HPF Urine Microscopic WBC (0-5) /HPF Ur Epithelial Cells (None Seen) /HPF Calcium Oxalate Crystal (None Seen) /HPF Urine Bacteria (None Seen) /HPF Urine Culture Reflexed (NO) Monoscreen NEGATIVE (NEGATIVE) Influenza Type A Ag NEGATIVE (NEGATIVE) Influenza Type B Ag NEGATIVE (NEGATIVE) RSV (PCR) NEGATIVE (NEGATIVE) SARS-CoV-2 (PCR) NEGATIVE (NEGATIVE) 01/03/24 01/03/24 01/03/24 Range/Units 12:15 12:15 12:15 WBC 11.6 H (4.0-10.5) x10^3/uL RBC 4.27 (4.1-5.4) x10^6/uL Hgb 13.4 (12.0-16.0) g/dL Hct 39.6 (35-47) % MCV 92.7 (78-100) fL MCH 31.4 (26-32) pg MCHC 33.8 (32-36) g/dL RDW 14.1 H (11.5-14.0) % Plt Count 196 (150-450) x10^3/uL MPV 9.0 (7.5-11.0) fL Gran % 68.8 H (36.0-66.0) % Immature Gran % (Auto) 0.5 H (0.00-0.4) % Nucleat RBC Rel Count 0.0 (0.00-0.1) % Eos # (Auto) 0.59 H (0-0.5) x10^3/uL Immature Gran # (Auto) 0.06 H (0.00-0.03) x10^3u/L Absolute Lymphs (auto) 2.22 (1.0-4.6) x10^3/uL Absolute Monos (auto) 0.72 (0.0-1.3) x10^3/uL Absolute Nucleated RBC 0.00 (0.00-0.01) x10^3u/L Lymphocytes % 19.2 L (24.0-44.0) % Monocytes % 6.2 (0.0-12.0) % Eosinophils % 5.1 H (0.00-5.0) % Basophils % 0.2 (0.0-0.4) % Absolute Granulocytes 7.95 H (1.4-6.9) x10^3/uL Basophils # 0.02 (0-0.4) x10^3/uL Sodium 134 L (135-145) mmol/L Potassium 5.5 H (3.5-5.1) mmol/L Chloride 104 (98-107) mmol/L Carbon Dioxide 17 L (22-30) mmol/L Anion Gap 19.2 H (5-15) MEQ/L BUN 46 H (7-17) mg/dL Creatinine 1.32 H (0.52-1.04) mg/dL Estimated GFR 43.4 ML/MIN Glucose 185 H (74-106) mg/dL Lactic Acid (0.4-2.0) Calcium 10.5 H (8.4-10.2) mg/dL Magnesium 1.5 L (1.6-2.3) mg/dL Total Bilirubin 0.50 (0.2-1.3) mg/dL AST 29 (14-36) U/L ALT 25 (0-35) U/L Alkaline Phosphatase 112 (38-126) U/L Serum Total Protein 7.2 (6.3-8.2) g/dL Albumin 4.2 (3.5-5.0) g/dL Amylase 91 (30-110) U/L Lipase 206 (23-300) U/L Urine Color (Yellow) Urine Appearance (Clear) Urine pH (4.6-8.0) Ur Specific Boyd (1.005-1.030) Urine Protein (Negative) Urine Glucose (UA) (Negative) mg/dL Urine Ketones (Negative) Urine Blood (Negative) Urine Nitrite (Negative) Urine Bilirubin (Negative) Urine Urobilinogen (0.2) mg/dL Ur Leukocyte Esterase (Negative) U Hyaline Cast (Auto) (0-2) /LPF Urine Microscopic RBC (0-5) /HPF Urine Microscopic WBC (0-5) /HPF Ur Epithelial Cells (None Seen) /HPF Calcium Oxalate Crystal (None Seen) /HPF Urine Bacteria (None Seen) /HPF Urine Culture Reflexed (NO) Monoscreen (NEGATIVE) Influenza Type A Ag (NEGATIVE) Influenza Type B Ag (NEGATIVE) RSV (PCR) (NEGATIVE) SARS-CoV-2 (PCR) (NEGATIVE) 01/03/24 01/03/24 Range/Units 11:48 11:47 WBC (4.0-10.5) x10^3/uL RBC (4.1-5.4) x10^6/uL Hgb (12.0-16.0) g/dL Hct (35-47) % MCV (78-100) fL MCH (26-32) pg MCHC (32-36) g/dL RDW (11.5-14.0) % Plt Count (150-450) x10^3/uL MPV (7.5-11.0) fL Gran % (36.0-66.0) % Immature Gran % (Auto) (0.00-0.4) % Nucleat RBC Rel Count (0.00-0.1) % Eos # (Auto) (0-0.5) x10^3/uL Immature Gran # (Auto) (0.00-0.03) x10^3u/L Absolute Lymphs (auto) (1.0-4.6) x10^3/uL Absolute Monos (auto) (0.0-1.3) x10^3/uL Absolute Nucleated RBC (0.00-0.01) x10^3u/L Lymphocytes % (24.0-44.0) % Monocytes % (0.0-12.0) % Eosinophils % (0.00-5.0) % Basophils % (0.0-0.4) % Absolute Granulocytes (1.4-6.9) x10^3/uL Basophils # (0-0.4) x10^3/uL Sodium (135-145) mmol/L Potassium (3.5-5.1) mmol/L Chloride (98-107) mmol/L Carbon Dioxide (22-30) mmol/L Anion Gap (5-15) MEQ/L BUN (7-17) mg/dL Creatinine (0.52-1.04) mg/dL Estimated GFR ML/MIN Glucose (74-106) mg/dL Lactic Acid 3.2 H (0.4-2.0) Calcium (8.4-10.2) mg/dL Magnesium (1.6-2.3) mg/dL Total Bilirubin (0.2-1.3) mg/dL AST (14-36) U/L ALT (0-35) U/L Alkaline Phosphatase (38-126) U/L Serum Total Protein (6.3-8.2) g/dL Albumin (3.5-5.0) g/dL Amylase (30-110) U/L Lipase (23-300) U/L Urine Color Yellow (Yellow) Urine Appearance Cloudy A (Clear) Urine pH 5.0 (4.6-8.0) Ur Specific Boyd 1.025 (1.005-1.030) Urine Protein Negative (Negative) Urine Glucose (UA) Negative (Negative) mg/dL Urine Ketones Trace A (Negative) Urine Blood Negative (Negative) Urine Nitrite Negative (Negative) Urine Bilirubin Negative (Negative) Urine Urobilinogen 0.2 (0.2) mg/dL Ur Leukocyte Esterase Moderate A (Negative) U Hyaline Cast (Auto) 20-50 (0-2) /LPF Urine Microscopic RBC 3-5 (0-5) /HPF Urine Microscopic WBC 3-5 (0-5) /HPF Ur Epithelial Cells Rare (None Seen) /HPF Calcium Oxalate Crystal 51-100 A (None Seen) /HPF Urine Bacteria None Seen (None Seen) /HPF Urine Culture Reflexed NO (NO) Monoscreen (NEGATIVE) Influenza Type A Ag (NEGATIVE) Influenza Type B Ag (NEGATIVE) RSV (PCR) (NEGATIVE) SARS-CoV-2 (PCR) (NEGATIVE) - Progress Progress: improved, re-examined Progress Note: 01/03/24 12:13 This patient's medical issue is 1 of moderate complexity. Level of complexity in the workup performed is based on review of the patient's past medical history, review the patient's medication list, review the patient drug allergy list, history present illness and physical findings on examination. The workup in this patient includes placement of intravenous line, infusion of 1 L normal saline solution, infusion of 4 mg intravenous Zofran, CBC, CMP, amylase, lipase, urinalysis, viral swabs, monotest, magnesium level, CT scan of the abdomen pelvis. 01/03/24 13:00 CT scan of the abdomen pelvis without contrast was interpreted by the radiologist and I reviewed the impression. The impression is a normal distended gallbladder but abnormal in this postprandial patient. There is minimal aortoiliac calcifications without abdominal aortic aneurysm. The remainder of the abdomen pelvis CT without contrast is normal. 01/03/24 14:40 I interpreted the patient's laboratory data results. Patient does have evidence of dehydration. She also has hypomagnesemia., Clinically, after IV fluid infusion, patient states she is slowly improving. We will replace her magnesium and provide her with a second liter of normal saline infusion prior to discharge. Counseled pt/family regarding: lab results, diagnosis, need for follow-up, rad results Medical Desision Making - Diagnostic Testing Diagnostic test were ordered, analyzed, and reviewed by me: Yes Radiological Interpretation: Reviewed by me, Teleradiologist Report - Risk of complications Low Risk: Low risk of morbidity from additional dx testing or treatment - Departure Departure Disposition: Home Clinical Impression: Diarrhea, Dehydration, Hypomagnesemia Condition: Stable Critical Care Time: No Referrals: BETSY WILSON MD [Primary Care Provider] - Follow up/PCP as directed Instructions: Low Magnesium Level, Diarrhea, Adult ED, Dehydration, Adult ED
[2024-01-03] MEDS ORDERED: Zofran 4 MG/2 ML VIAL ONE (12:09)
[2024-01-03] MEDS ORDERED: Sodium Chloride 0.9% 1000 ML 1,000 ML ONE ×2 (12:10→14:49)
[2024-01-03] MEDS: Sodium Chloride 0.9% 1000 ML 1,000 ML IV STA ×2 (12:15→14:54)
[2024-01-03] MEDS: Zofran 4 MG/2 ML VIAL IV ONE (12:16)
[2024-01-03 12:19] VITALS: TEMP 98.1
[2024-01-03 12:24] LABS: Absolute Neutrophil Ct (ANC) 7.95 x10^3/uL (1.4-6.9); BASOPHIL % 0.2 % (0.0-0.4); Basophil (Absolute #) 0.02 x10^3/uL (0-0.4); Eosinophil % 5.1 % (0.00-5.0); Eosinophil (Absolute #) 0.59 x10^3/uL (0-0.5); Hematocrit 39.6 % (35-47); Hemoglobin 13.4 g/dL (12.0-16.0); IMMATURE GRAN # 0.06 x10^3u/L (0.00-0.03); IMMATURE GRAN % 0.5 % (0.00-0.4); Lymphocyte (Absolute #) 2.22 x10^3/uL (1.0-4.6); Lymphocytes % 19.2 % (24.0-44.0); Mean Cell Volume 92.7 fL (78-100); Mean Corpuscular Hemoglobin 31.4 pg (26-32); Mean Corpuscular Hgb Concent. 33.8 g/dL (32-36); Monocyte (Absolute #) 0.72 x10^3/uL (0.0-1.3); Monocytes % 6.2 % (0.0-12.0); Neutrophil % 68.8 % (36.0-66.0); Platelet Count 196 x10^3/uL (150-450); Red Blood Count 4.27 x10^6/uL (4.1-5.4); Red Cell Distribution Width 14.1 % (11.5-14.0); White Blood Count 11.6 x10^3/uL (4.0-10.5)
[2024-01-03 12:37] LABS: ALBUMIN 4.2 g/dL (3.5-5.0); ANION GAP 19.2 MEQ/L (5-15); BILIRUBIN,TOTAL 0.5 mg/dL (0.2-1.3); Calcium 10.5 mg/dL (8.4-10.2); Creatinine 1 1.32 mg/dL (0.52-1.04); EST GLOMERULAR FILTRATION RATE 43.4 ML/MIN; Potassium 5.5 mmol/L (3.5-5.1); Total Protein 7.2 g/dL (6.3-8.2)
--- NOTE | 2024-01-03 12:57 | XRAY ---
Indication: Diarrhea. Multiple contiguous axial images obtained through the abdomen and pelvis without contrast. Comparison: October 14, 2020 Lung bases remain clear. Heart not enlarged. Stomach is distended with food/fluid. Normal distended gallbladder, but abnormal for this postprandial patient. Noncontrasted stomach and bowel loops appear nonobstructed. Stable small left renal cortical cyst. No free fluid/air. Remaining liver, gallbladder, pancreas, spleen, adrenal glands, kidneys, ureters, bladder, and uterus are unremarkable for noncontrast exam. Again minimal aortoiliac calcifications without AAA. Osseous structures intact again with mild/moderate degenerative changes throughout spine and minimal levoscoliosis. Impression: 1. Normal distended gallbladder, but abnormal in this postprandial patient. 2. Again chronic findings including left renal cyst and chronic bony findings. 3. Remaining CT abdomen/pelvis without contrast exam is again negative.
[2024-01-03 13:29] LABS: INFLUENZA A NEGATIVE (NEGATIVE); INFLUENZA B NEGATIVE (NEGATIVE); RESPIRATORY SYNCTIAL VIRUS NEGATIVE (NEGATIVE); SARS-CoV-2 Xpert Express NEGATIVE (NEGATIVE)
[2024-01-03 14:35] LABS: Appearance Cloudy (Clear); Bacteria None Seen /HPF (None Seen); Bilirubin Negative (Negative); Blood Negative (Negative); Epithelial Cells Rare /HPF (None Seen); Glucose, Urine Negative (Negative); Hyaline Casts 20-50 /LPF (0-2); Ketones Trace (Negative); Leukocyte Esterase Moderate (Negative); Nitrite Negative (Negative); Protein,Urine Dip Negative (Negative); Specific Gravity 1.025 (1.005-1.030); Urobilinogen 0.2 mg/dL (0.2)
[2024-01-03 14:36] LABS: ADD URINE CULTURE? NO (NO); Calcium Oxalate Crystals 51-100 /HPF (None Seen)
[2024-01-03] MEDS ORDERED: Magnesium 1 Gm / 100 Ml D5W*** 200 ML IV ONE (14:49)
[2024-01-03] MEDS: MAGNESIUM SULF 2 G/50 ML BAG 2 GM/50 ML PIGGYBACK IV ONE (15:00)
[2024-01-03] MEDS: Magnesium 1 Gm / 100 Ml D5W*** 100 ML IV SCH (15:01)
[2024-01-03 16:23] VITALS: PULSE 87; RESP 20; O2SAT 99
[2024-01-03 16:55] VITALS: BP 113/68
== END 2024-01-03 16:56 | disposition home or self-care (01) ==
LOC: ED 11:37
DX: R19.7 Diarrhea, unspecified (principal); E86.0 Dehydration; E83.42 Hypomagnesemia; R11.0 Nausea; I10 Essential (primary) hypertension; E78.5 Hyperlipidemia, unspecified; E11.9 Type 2 diabetes mellitus without complications; Z79.84 Long term (current) use of oral hypoglycemic drugs; Z79.899 Other long term (current) drug therapy; Z86.16 Personal history of COVID-19; Z20.828 Contact with and (suspected) exposure to other viral communicable diseases
CPT/HCPCS: 0241U; 36000; 36415; 74176; 80053; 81001; 82150; 83605; 83690; 83735; 85025; 86308; 96374; 96375; 99284; J2405; J3475

== ENCOUNTER 2024-05-04 19:08 | Emergency (ER) | payer MEDICARE, SELFPAY ==
[2024-05-04 19:38] VITALS: TEMP 97.3; O2SAT 98
--- NOTE | 2024-05-04 20:04 | ERPHSYRPT ---
- History of Present Illness Time Seen by Provider: 05/04/24 20:04 Source: patient Exam Limitations: no limitations Patient Subjective Stated Complaint: pt states while gardening she heard a pop in her foot and has been having pain in the heel since Triage Nursing Assessment: pt alert and oriented, answers questions approp. pt ambulates into room with limping gait noted. respirations nonlabored. skin warm and dry. no injury, no open areas. pt reports tenderness to bottom of heel. Physician History: The patient, with no prior history of foot problems, presented with acute onset of heel pain. The discomfort began while they were gardening and has progressively worsened. The pain is localized to the bottom of the heel and is exacerbated by walking. On examination, the patient reported tenderness at the bottom of the heel. The patient denied any need for pain medication at the time of the consultation. They reported an inability to take ibuprofen but can manage the pain with Tylenol. Method of Injury: unknown Occurred: this afternoon Quality: sharpness, stabbing Severity of Pain-Max: severe Severity of Pain-Current: severe Lower Extremities Pain: heel: left Modifying Factors: Improves With: rest. Worsens With: movement Associated Symptoms: other (painful WB) Allergies/Adverse Reactions: No Known Drug Allergies Allergy (Verified 05/04/24 19:16) Home Medications: Levothyroxine Sodium 75 Mcg [Synthroid 75 Mcg] 100 mcg PO DAILY 11/07/13 [History] Venlafaxine HCl [Effexor] 150 mg PO DAILY 11/07/13 [History] Calcium Citrate/Vitamin D3 [Calcium Citrate - Vit D Caplet] 1 each PO DAILY 10/01/15 [History] Cyanocobalamin (Vitamin B-12) [Vitamin B12] 500 mcg PO DAILY 10/01/15 [History] Metformin HCl 500 mg [Glucophage 500 MG] 500 tablet PO BID 12/04/15 [History] Ropinirole HCl 0.5 mg [Requip 0.5 MG] 2 mg PO BID 07/10/18 [History] Docusate Sodium [Stool Softener] 100 mg PO DAILY 06/07/21 [History] Ferrous Sulfate [Iron] 325 mg DAILY 06/07/21 [History] Glimepiride 2 mg [Amaryl 2 MG] 2 mg PO DAILY 06/07/21 [History] Magnesium Oxide 400 mg [Mag-Ox 400] 400 mg PO HS 06/07/21 [History] Melatonin 10 mg PO HS 06/07/21 [History] Valsartan 160 mg PO DAILY 06/07/21 [History] Calcium Carbonate 750 mg [Tums EX 750 MG] 1 tab PO Q4-6HPRN PRN 12/20/21 [History] Pravastatin Sodium 40 mg PO DAILY 05/30/22 [History] Venlafaxine HCl ER 75 mg [Effexor XR 75 MG] 75 mg PO DAILY 05/30/22 [History] Hx Tetanus, Diphtheria Vaccination/Date Given: No (unsure) Hx Influenza Vaccination/Date Given: Yes Hx Pneumococcal Vaccination/Date Given: No Immunizations Up to Date: No Travel Risk - International Travel Have you traveled outside of the country in past 3 weeks: No - Emerging Infectious Disease Are you exhibiting symptoms associated with any current EIDs: No Symptoms: Diarrhea - Review of Systems All Other Systems: Reviewed and Negative - Past Medical History Pertinent Past Medical History: Yes Neurological History: No Pertinent History ENT History: Cataracts Cardiac History: High Cholesterol, Hypertension Respiratory History: Other Endocrine Medical History: Diabetes Type II, Hypothyroidism Musculoskeletal History: Osteoarthritis GI Medical History: Polyps, GERD History: No Pertinent History Psycho-Social History: Anxiety Female Reproductive Disorders: No Pertinent History Other Medical History: HX OF COVID - Past Surgical History Past Surgical History: Yes Neuro Surgical History: No Pertinent History Cardiac: No Pertinent History Respiratory: No Pertinent History Gastrointestinal: No Pertinent History Genitourinary: No Pertinent History Musculoskeletal: No Pertinent History Female Surgical History: Dilation & Curettage Other Surgical History: colonoscopy Significant Family History: no pertinent family hx - Social History Smoking Status: Never smoker Exposure to second hand smoke: Yes Drug Use: none Patient Lives Alone: No - Social Determinants of Health Will the patient participate in the screening: Declined to provide - Nursing Vital Signs Nursing Vital Signs: Initial Vital Signs Temperature 97.3 F 05/04/24 19:16 Pulse Rate 106 H 05/04/24 19:16 Respiratory Rate 18 05/04/24 19:16 Blood Pressure 149/84 05/04/24 19:16 O2 Sat by Pulse Oximetry 98 05/04/24 19:16 Pain Scale Pain Intensity 8 - Physical Exam General Appearance: no apparent distress Foot Exam: left foot: pain (medial plantar fascia), soft tissue tenderness, swelling Neuro/Tendon Exam: normal sensation, normal motor functions, normal tendon functions Mental Status Exam: alert, 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, cooperative SpO2: 98 - Course Nursing assessment & vital signs reviewed: Yes - Radiology Exams Left Foot X-ray Interpretation: Interpreted by me, No Fracture - Progress Progress: unchanged Progress Note: - Reviewed and independently interpreted patient's imaging. Discussed imaging with patient. - Medial plantar fascia strain. - Placed in post op shoe to offload injury. - Patient given handouts for a guided home exercise program. - Recommend [id number] medications as needed for pain control and alleviation of swelling. Patient may alternate Tylenol and NSAIDs by mouth and o [id number] Diclofenac (Voltaren) gel for topical relief. - NSAID options that the patient may take are Ibuprofen 800mg up to three times daily or Naproxen (Aleve) 500mg up to two times daily. - We discussed the risks as well as safe and judicious use of anti- inflammatories (NSAIDs) especially in regard to kidney function, gastrointestinal health, and heart disease. Patient was instructed to avoid combining multiple anti-inflammatories to avoid duplicate therapy and increased risk of kidney injury or gastrointestinal upset. - The maximum daily dose of Tylenol is 3,000mg per day. I recommend taking 500mg three times a day until the pain is improved. This still allows for 1,500mg of Tylenol to used as needed throughout the day. - We discussed the risks as well as safe and judicious use of acetaminophen (Tylenol) especially in regard to liver function. - Recommend resting and using ice, compression, and elevation to help alleviate inflammation and swelling. Ice 2-3 times per day for 10-15 minutes. Patient was cautioned against placing ice directly onto the skin. - Patient was also educated on elevating their left extremity above the level of their heart for adequate swelling relief. - I will have the patient follow-up with us in 2 weeks for re-evaluation. Patient was agreeable to plan and all questions were answered. Patient was instructed to call the office with any questions or concerns until their next follow-up appointment. Counseled pt/family regarding: diagnosis, need for follow-up, rad results Medical Desision Making - Diagnostic Testing Diagnostic test were ordered, analyzed, and reviewed by me: Yes Radiological Interpretation: Interpreted by me - Risk of complications Low Risk: Low risk of morbidity from additional dx testing or treatment - Departure Departure Disposition: Home Clinical Impression: Plantar fasciitis of left foot Condition: Good Critical Care Time: No Referrals: BETSY WILSON MD [Primary Care Provider] - Follow up/PCP as directed LÓPEZ OG NP [NON-STAFF PHY W/O PRIVILEGES] - Follow up/PCP as directed Instructions: Plantar fasciitis, Heel Pain Caused by Plantar Fasciitis (DC), Plantar Fasciitis Exercises
[2024-05-04 20:42] VITALS: BP 127/70; PULSE 80; RESP 16
--- NOTE | 2024-05-04 22:33 | XRAY ---
Indication: Heel pain. Comparison: None 3 nonweightbearing views left foot demonstrates tiny posterior/plantar heel spurs and incidental tiny cuboid accessory ossicle. No other bony, articular, or soft tissue abnormalities.
== END 2024-05-04 20:46 | disposition home or self-care (01) ==
LOC: ED 19:08
DX: M72.2 Plantar fascial fibromatosis (principal); M79.672 Pain in left foot; E78.5 Hyperlipidemia, unspecified; I10 Essential (primary) hypertension; E11.9 Type 2 diabetes mellitus without complications; Z79.84 Long term (current) use of oral hypoglycemic drugs; Z79.899 Other long term (current) drug therapy
CPT/HCPCS: 73630; 99283

== ENCOUNTER 2024-11-24 05:07 | Emergency (ER) | payer MEDICARE ==
[2024-11-24 05:26] VITALS: PULSE 92; RESP 14; TEMP 97.4
--- NOTE | 2024-11-24 05:32 | ERPHSYRPT ---
- History of Present Illness Source: patient Exam Limitations: no limitations Patient Subjective Stated Complaint: pt states she has had lower back pain for the last 3 nights Triage Nursing Assessment: pt ambulated into the er; pt is axo x4; c/o lower back pain; pt states 10/10 to lower back; pt denies fall, trauma, or injury; good ROM to back; skin PDW; no respiratory distress present; vitals wnl Physician History: Patient has back pain. It is in the lumbar area. It radiates down towards her buttock. She says that standing makes it feel little bit better sitting down makes it worse. She has never had problems like this before. She does not have any bowel or bladder dysfunction no saddle paresthesias or anything like that. She does not have any true radicular pain but the symptoms are suspicious for disc pathology. Allergies/Adverse Reactions: No Known Drug Allergies Allergy (Verified 11/24/24 05:12) Home Medications: Levothyroxine Sodium 75 Mcg [Synthroid 75 Mcg] 100 mcg PO DAILY 11/07/13 [History] Venlafaxine HCl [Effexor] 150 mg PO DAILY 11/07/13 [History] Calcium Citrate/Vitamin D3 [Calcium Citrate - Vit D Caplet] 1 each PO DAILY 10/01/15 [History] Cyanocobalamin (Vitamin B-12) [Vitamin B12] 500 mcg PO DAILY 10/01/15 [History] Metformin HCl 500 mg [Glucophage 500 MG] 500 tablet PO BID 12/04/15 [History] Ropinirole HCl 0.5 mg [Requip 0.5 MG] 2 mg PO BID 07/10/18 [History] Docusate Sodium [Stool Softener] 100 mg PO DAILY 06/07/21 [History] Ferrous Sulfate [Iron] 325 mg DAILY 06/07/21 [History] Glimepiride 2 mg [Amaryl 2 MG] 2 mg PO DAILY 06/07/21 [History] Magnesium Oxide 400 mg [Mag-Ox 400] 400 mg PO HS 06/07/21 [History] Melatonin 10 mg PO HS 06/07/21 [History] Valsartan 160 mg PO DAILY 06/07/21 [History] Calcium Carbonate 750 mg [Tums EX 750 MG] 1 tab PO Q4-6HPRN PRN 12/20/21 [History] Pravastatin Sodium 40 mg PO DAILY 05/30/22 [History] Venlafaxine HCl ER 75 mg [Effexor XR 75 MG] 75 mg PO DAILY 05/30/22 [History] Hx Tetanus, Diphtheria Vaccination/Date Given: No (unsure) Hx Influenza Vaccination/Date Given: Yes Hx Pneumococcal Vaccination/Date Given: No Travel Risk - International Travel Have you traveled outside of the country in past 3 weeks: No - Emerging Infectious Disease Are you exhibiting symptoms associated with any current EIDs: No Symptoms: Diarrhea - Review of Systems Constitutional: No Symptoms Eyes: No Symptoms Musculoskeletal: Back Pain Skin: No Symptoms Neurological: No Symptoms - Past Medical History Pertinent Past Medical History: Yes Neurological History: Other ENT History: Cataracts Cardiac History: Hypertension Respiratory History: No Pertinent History Endocrine Medical History: Diabetes Type II, Hypothyroidism Musculoskeletal History: Osteoarthritis GI Medical History: Polyps, GERD History: No Pertinent History Psycho-Social History: Anxiety Female Reproductive Disorders: No Pertinent History Other Medical History: HISTORY OF N/T INTO R UE, NOT NEW SYMPTOMS. - Past Surgical History Past Surgical History: Yes Neuro Surgical History: No Pertinent History Cardiac: No Pertinent History Respiratory: No Pertinent History Gastrointestinal: No Pertinent History Genitourinary: No Pertinent History Musculoskeletal: Orthopedic Surgery Female Surgical History: Dilation & Curettage Other Surgical History: colonoscopy, rt shoulder replacement Significant Family History: no pertinent family hx - Social History Smoking Status: Never smoker Exposure to second hand smoke: No Drug Use: none Patient Lives Alone: No - Social Determinants of Health Will the patient participate in the screening: Yes Do you worry about a steady place to live?: No Do you have any problems with any of the following?: No known problems In the past 12 months,have you had to go without utilities?: No Transportation Issues: No Has anyone in your support network made you feel unsafe?: No Have you or anyone in your house had to go without enough: No - Nursing Vital Signs Nursing Vital Signs: Initial Vital Signs Temperature 97.4 F 11/24/24 05:16 Pulse Rate 99 H 11/24/24 05:16 Respiratory Rate 14 11/24/24 05:16 Blood Pressure 134/60 11/24/24 05:16 O2 Sat by Pulse Oximetry 100 11/24/24 05:16 Pain Scale Pain Intensity [Lower Back] 10 Pain Intensity 10 - Physical Exam General Appearance: no apparent distress Eye Exam: PERRL/EOMI Back Exam: normal inspection, normal range of motion, No CVA tenderness, No vertebral tenderness, No rash Extremity Exam: normal inspection, normal range of motion, pelvis stable Neurologic Exam: alert, 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, cooperative, nml station & gait, sensation nml, No motor deficits, No sensory deficit Skin Exam: normal color, warm, dry SpO2: 100 - Course Nursing assessment & vital signs reviewed: Yes Ordered Tests: Active Orders 24 hr Category Date Time Status LUMBAR LIMITED (2 OR 3 VIEWS) Stat Exams 11/24/24 05:26 Ordered Lab/Rad Data: Lumbar spine - Progress Progress: improved Progress Note: On the differential was degenerative disc disease, lumbar fracture, arthritis. X-ray was done it did not show any acute findings.I think she has a irritated lumbar disc. I went to start her on [place] and prednisone 11/24/24 05:32 - Departure Departure Disposition: Home Clinical Impression: Low back pain Condition: Stable Critical Care Time: No Referrals: BETSY WILSON MD [Primary Care Provider] - Follow up/PCP as directed Instructions: Low Back Pain (DC)
[2024-11-24 06:03] VITALS: BP 121/67; O2SAT 98
--- NOTE | 2024-11-24 07:57 | XRAY ---
Indication: Low back pain. Comparison: March 19, 2024 3 view lumbar spine unchanged again demonstrating osteopenia, moderate/advanced multilevel degenerative spondylosis is again greatest at L1-L2, and scattered arteriosclerotic calcifications. No new/acute bony, articular, or soft tissue abnormalities.
== END 2024-11-24 06:03 | disposition home or self-care (01) ==
LOC: ED 05:07
DX: M54.50 Low back pain, unspecified (principal); I10 Essential (primary) hypertension; E11.9 Type 2 diabetes mellitus without complications; Z79.84 Long term (current) use of oral hypoglycemic drugs; Z79.899 Other long term (current) drug therapy
CPT/HCPCS: 72100; 99282; 99283